=== PATIENT | female | born 1975 | race Caucasian/White ===

== ENCOUNTER 2020-02-23 09:42 | Inpatient (IN) | payer OTHER ==
[~2020-02-23] VITALS: Ht 167.6 cm; Wt 115.7 kg
--- NOTE | ~2020-02-23 | DS ---
[facility] [address], [place] [address] Draft ADMISSION DATE: 02/23/2020 DISCHARGE DATE: REASON FOR ADMISSION: Incarcerated strangulated incisional hernia, infraumbilical area. HISTORY: This morbidly obese 44-year-old white woman presented to the emergency room, was evaluated by Dr. Conley with severe pain and a large mass in the infraumbilical area consistent with incarcerated hernia. She had a long-standing hernia which in general terms had been reducible, but it has become recently nonreducible. She has had at least three days of very severe pain. Evaluation by Dr. Back includes a CT scan showing incarcerated incisional hernia with small bowel obstruction, markedly inflamed subcutaneous tissue in the large abdominal wall pannus and elevated white count to greater than 20,000 with 30% band forms. She is admitted for further evaluation and care. PERTINENT PHYSICAL EXAMINATION: GENERAL: Showed an obese white woman, but was not delirious, but was quite uncomfortable. HEENT: Mucous membranes are slightly dry. CHEST: Clear. HEART: Regular without murmur. ABDOMEN: Quite obese. There was a cantaloupe-sized nonreducible tender mass with erythema and peau d'orange changes of the skin in the infraumbilical area consistent with incarcerated probably strangulated incisional hernia. Her prior operation was that of laparoscopic tubal ligation. HOSPITAL COURSE: She was fluid resuscitated given intravenous antibiotic meropenem and a nasogastric tube was placed. She underwent emergency operation, which included identification of a fascial defect approximately 6 cm with a markedly chronically inflamed and incarcerated incisional hernia with multiple pockets within the hernia sac, which densely incorporated small bowel loops. Ischemic areas of bowel were noted within this. Segmental bowel resection of approximately 12-16 inches of ileum was undertaken as the bowel was nonsalvageable. A [id number] stapled enteroenterostomy was undertaken. The incisional hernia was repaired with implantation of absorbable Vicryl mesh in an underlay technique and reapproximation of the fascial edges. Additionally, debridement of abdominal wall necrotic fat in place and obtaining of cultures was undertaken. A drain was placed as well. PATIENT NAME: ESME HARDWICK DISCHARGE SUMMARY DATE OF : 73 REPORT #: [id number] PHYSICIAN: NUNU REED MD PCP: NO PRIMARY CARE PHYSICIAN REPORT IS CONFIDENTIAL AND NOT TO BE RELEASED WITHOUT AUTHORIZATION [facility] [address], [place] [address] Draft Postoperatively, the patient felt markedly improved immediately after operation. A nasogastric was allowed to remain in place for the next 12 hours and ultimately removed. She was advanced on a liquid diet and ultimately a solid diet, which she tolerated well. Full bowel function has returned. The drain was removed prior to discharge. Her cellulitic appearing change of the abdominal wall was resolving at time of discharge, though she remains quite markedly obese with firmness of her abdominal wall pannus, soft tissue in the region of the operation. Gram stain and culture showed only white cells, no organisms and cultures negative. By time of discharge, she is ambulating well, tolerating a regular diet. Drain has been removed. Incision is healing well. Her pain is well controlled with oral analgesics, not requiring opiates. DISCHARGE MEDICATIONS: Include Tylenol 1 g p.o. q.6 hours p.r.n. pain #60 refill 2, Motrin 600 mg p.o. q.6 hours as needed for pain #60 refill 2. FOLLOWUP PLANS: She is return to see me in approximately 4 weeks. She will call for appointment tomorrow. She is instructed to wear the abdominal binder that has been provided routinely except when supine in bed. She is permitted to shower, should leave Steri-Strips in place. She should lift no more than 20 pounds for the next 4 weeks at minimum. DISCHARGE DIAGNOSES: 1. Incarcerated incisional hernia with strangulation of small bowel (ileum) status post exploration, resection of bowel, mzje-ka-mzqm anastomosis, repair of hernia with implantation of absorbable Vicryl mesh underlay technique with reapproximation of fascial edges. 2. Debridement of ischemic necrotic subcutaneous fat. 3. Morbid obesity. MD BEN Lee/SHANAL /[id number] cc: Dr. Renato Back PATIENT NAME: ESME HARDWICK DISCHARGE SUMMARY DATE OF : 73 REPORT #: [id number] PHYSICIAN: NUNU REED MD PCP: NO PRIMARY CARE PHYSICIAN REPORT IS CONFIDENTIAL AND NOT TO BE RELEASED WITHOUT AUTHORIZATION [address] [address] Draft Copies: ~ PATIENT NAME: ESME HARDWICK DISCHARGE SUMMARY DATE OF : 73 REPORT #: [id number] PHYSICIAN: NUNU REED MD PCP: NO PRIMARY CARE PHYSICIAN REPORT IS CONFIDENTIAL AND NOT TO BE RELEASED WITHOUT AUTHORIZATION
[~2020-02-23 09:42] MED LIST: PRENATAL CAPSU1 EACH PO
--- NOTE | 2020-02-23 15:29 | NUR ---
PT ARRIVED AT 1400 TODAY. PT STATED ON ARRIVAL THAT HER PAIN WAS 2/10, BUT PT DID REPORT THAT SHE WAS FEELING NAUSEAOUS
--- NOTE | 2020-02-23 15:30 | NUR ---
PT STATED THAT HER PAIN LEVEL INCREASED RANDOMLY TO 6/10. PTOVIDED PT WITH 0.5MG OF DILAUDID FOR PAIN AND 4MG OF ZOFRAN FOR COMFORT PT IS PREPPED AND READY FOR SUREGERY AT THIS TIME
--- NOTE | 2020-02-23 17:34 | NUR ---
PTS FIANCE NAME AND NUMBER = SHEELA GENEVIEVE- [phone]
--- NOTE | 2020-02-23 19:05 | NUR ---
bedside report from leonor turcios. pt in surgery at this time, room cleaned with sani cloth and linen removed.
--- NOTE | 2020-02-23 19:41 | NUR ---
02/23/201940 Doc Arambula RESPONDS TO TAP AND VOICE AT 1933. OPA REMOVED PT IS REACHING UP TO MOUTH. REORIENTED PT TO TIME AND SITUATION. DENIES PAIN. DENIES NAUSEA.
--- NOTE | 2020-02-23 20:35 | NUR ---
pt to rm with Doc rn for bedside report. midline abd drsg cdi, with yudith and dressing including abd binder. pain rated at 0/10. call light in reach and pt alert and oriented to rn and room. iv d5 1/2 ns 2 125 in l ac. NGT TO LOW SUCTION AND ICE CHIPS SLOWLY FOR COMFORT. ABX AT 2200 TONIGHT AND PT CALLING FAMILY ON PHONE. CAI DRAINING CLEAR URINE.
--- NOTE | 2020-02-23 22:16 | NUR ---
PT MAR WITH ONLY IV ABX ON IT. DR. REED CALLED AND NEW ORDERS OBTAINED FOR PAIN AND NAUSEA IF NEEDED. PRIOR TO THAT PT PAIN 09/10 AND ICE PACK TO ABD GIVEN FOR COMFORT. IV ABX HANGING NOW.
--- NOTE | 2020-02-23 22:33 | NUR ---
pt iv abx fusing well, singh draining yellow urine qs. scds on, yudith with 40 ml dumped of serosang drainage - taught pt yudith instructions.
--- NOTE | 2020-02-24 00:06 | NUR ---
pt reports throat and abd pain 1/10 - medicated with iv toradol. vss, 02 2lnc. denies needs other than pain.
--- NOTE | 2020-02-24 01:43 | NUR ---
RN IN FOR ASSESSMENT, PT REPORTS THROAT TENDER - VOICE HOARSE, TOLLERABLE USING ICE CHIPS WITH CAUTION - NGT TO SUCTION. IV FUSING WELL, [employer] AND JOSE ANTONIO WONG. VSS
--- NOTE | 2020-02-24 01:53 | NUR ---
JOSE ANTONIO DRAINED AND I/O DONE. JOSE ANTONIO HAD 20 ML OF SEROSANG DRAINAGE.
--- NOTE | 2020-02-24 04:36 | NUR ---
checked orders with bellows charger assembler, pt resp rate even, appears comfortable - no distress.
--- NOTE | 2020-02-24 04:50 | NUR ---
PT POST OP SM BOWEL RESECTION, HERNIA REPAIR WITH MESH. NGT, MARIA TERESA DRAIN INTACT WNL. AB BINDER ON WITH MIDLINE DRESG CDI - TORADOL PRN IV AND iV ABX ONLY MEDS GIVEN THIS SHIFT. CONFIRM IV FLUIDS WITH DR. COLUNGA AM. PT USING IS WELL, CAI DRAINING QS, AND PLEASANT PT.
--- NOTE | 2020-02-24 06:00 | NUR ---
iv abx hanging. pt on phone, denies needs, abd crystal and yudith wnl - i/o wnl and documented.
--- NOTE | 2020-02-24 06:55 | NUR ---
WASTE DISPOSAL ATTENDANT ASKED ABOUT FURTHER ORDERS FOR IV FLUIDS, AM LABS AND HEPARIN, -CHARGE CALLED AND RECEIVED ORDERS - SHE WILL ENTER.
--- NOTE | 2020-02-24 06:58 | NUR ---
PHONE CALL TO . VERIFIED IVF, MEDICATION, AND LAB ORDERS. NEW ORDERS RECEIVED, REPEATED BACK TO VERIFY.
--- NOTE | 2020-02-24 07:36 | NUR ---
0715: Pt resting in her bed with ngt to low suction, yudith drain working, scds on and running. She states her pain is well controled at 2/10. Call quintanilla within reach. Report received from Lorrie MAHONEY.
--- NOTE | 2020-02-24 09:12 | NUR ---
DR REED TO THE BEDSIDE SPEAKING WITH THE PT.
--- NOTE | 2020-02-24 09:21 | NUR ---
MED REC COMPLETE
--- NOTE | 2020-02-24 09:31 | NUR ---
DR REED WILL BE NOTIFIED OF HER URINE OUTPUT.
--- NOTE | 2020-02-24 09:36 | NUR ---
PT RESTING IN BED, NGT REMOVED ORDERED BY DR REED AND THE PT TOLERATED IT WELL. HER MIDLINE DRESSING REMAINS CDI WITH ABD BINDER IN PLACE. RIGHT SIDED JOSE ANTONIO DRAIN PUTTING OUT A SMALL AMOUNT OF SEROUS DRAINAGE AND THE DRESSING HAS A MODERATE AMOUNT OF DRAINAGE ON IT BUT IT REMAINS INTACT. CAI PUT OUT 100 ML OF JULIO URNINE, A MESSAGE WAS LEFT FOR DR REED IN THIS REGARD. PT DENIES ANY PAIN AT THIS TIME. SEE ASSESSMENT.
--- NOTE | 2020-02-24 10:13 | NUR ---
Pt ambulated about 1/3 of a lap in the halls with a SBA. She was steady on her feet and states that it feels good to be up and walking. Upon returning to her room she sat in the chair and is now visiting with her friend. She states that her pain really did not change with the walking and continues to rate it at a 4 which it was also prior to the walk. Call quintanilla within reach.
--- NOTE | 2020-02-24 10:30 | NUR ---
CM assessment completed with Mercedes. Son, Rickey, is in the room. 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 She is usually healthy and active. She lives in a 1 story home with 0 steps. Son lives with her. She does not have any insurance and I will call Kell to assist her. She does not have a PCP and would like assistance to establish care with a provider in [place]. She does not care who or if the are PA, CO[facility], or MD. I will call [facility] as I believe they are still taking pts. Kell arrives before I have a chance to call to assist pt with the [facility]. I called [facility], they are busy and will call be this afternoon with appts if I will fax a face sheet. Face sheet faxed.
--- NOTE | 2020-02-24 11:05 | NUR ---
Mckinley cath dc'd as ordered, pt tolerated well. Pt instructed to notify RN when she voids so it can be measured.
--- NOTE | 2020-02-24 12:17 | NUR ---
Pt slowly eating her clear liquid lunch and she continues to deny any nausea of increase in pain with her eating. Pt has yet to void since the singh was dc'd, will continue to monitor.
--- NOTE | 2020-02-24 12:36 | NUR ---
Pt ate/drank about 600 ml of clear liquid for her lunch and she states she is "full" but denies nausea or increased pain after eating.
--- NOTE | 2020-02-24 13:48 | NUR ---
PT DENIES ANY NEW PROBLMES AND TOLERATED HER LUNCH WITHOUT ANY ISSUES. PT HAS YET TO VOID SINCE HER CAI WAS DC'D BUT STATES SHE WILL ATTEMPT TO VOID HEAR SHORTLY. NO NEW PROBLEMS NOTED. SEE ASSESSMENT.
--- NOTE | 2020-02-24 14:44 | NUR ---
PT AMBULATING IN THE HALLS WITH A SBA FOR THE SECOND TIME THIS SHIFT.
--- NOTE | 2020-02-24 14:45 | NUR ---
PT WALKED A LAP IN THE HALLS AND UPON RETURN SHE STATES SHE FEELS "PRETTY GOOD".
--- NOTE | 2020-02-24 17:23 | NUR ---
PT STATES HER ABD HAS INCREASED TO A 4/10 AND WAS MEDICATED ORDERED AND REQEUSTED BY THE PT. SEE EMAR. JOSE ANTONIO DRAIN EMPTIED FOR 80ML AT THIS TIME. PT CONTINUES TAKING PO CLEAR LIQUIDS WITHOUT ANY TROUBLE AND IS NOW HAVING HER CLEAR LIQUID DINNER.
--- NOTE | 2020-02-24 17:28 | NUR ---
appt to establish care scheduled with Jaimie Orona 10/03/19 at 2pm. Pt will need to arrive at 1340.
--- NOTE | 2020-02-24 17:46 | HP ---
[facility] [address], [place] [address] Signed ADMISSION DATE: 02/23/2020 REASON FOR ADMISSION: Incarcerated, possibly strangulated incisional hernia. HISTORY OF PRESENT ILLNESS: This morbidly obese (BMI 40.4) 44-year-old white woman, presented to the emergency room at approximately 10:00 am, was evaluated by Dr. Bojorquez. She has a very large mass in the region of the umbilicus. She has incision there from the past related to gynecologic surgery. The patient has had hernia episodically in this area, which has been reducible in the past. She began having vomiting on Friday night (today is Friday) and increasing pain and soon of the large bulky incisional hernia at the umbilicus. Evaluation by Dr. Bojorquez showed it to be markedly tender and not reducible. Evaluation in the emergency room included a CT scan of the abdomen, which shows bowel loops within the incarcerated hernia and subcutaneous inflammatory changes as well. She has had associated vomiting and likely a small bowel obstruction is noted with this as well. Her prior operation of the abdomen was tubal ligation (2013). ALLERGIES: Notable for penicillin allergy in the distant past. MEDICATIONS: Her only medications include a vitamin. Notably, her beta-hCG test is negative. SOCIAL HISTORY: She does smoke on a daily basis. Does not use alcohol or drugs. Her last menstrual period was February 17, 2020. Her evaluation included a white count noted to be elevated at 20, hematocrit of 32.5. Electrolytes normal. A COVID test has been obtained with results are not completed yet. REVIEW OF SYSTEMS: She denies any shortness of breath or chest pain. Denies any hematemesis or blood per rectum. PHYSICAL EXAMINATION: GENERAL: Obese, relatively tall white woman, who is lying supine. She is not Electronically Signed By: NUNU REED MD 02/24/20 1746 PATIENT NAME: ESME HARDWICK HISTORY AND PHYSICAL DATE OF : 73 REPORT #: [id number] PHYSICIAN: NUNU REED MD PCP: NO PRIMARY CARE PHYSICIAN REPORT IS CONFIDENTIAL AND NOT TO BE RELEASED WITHOUT AUTHORIZATION [facility] [address], [place] [address] Signed delirious. She is accompanied by her gzohhy-pl-iia and other of my patients. HEENT: Her mucous membranes are slightly dry. Trachea is midline. CHEST: Shows no sign of tachypnea. HEART: Regular. ABDOMEN: Obese. There is a very large mass approximately the size of a cantaloupe in the region of the umbilicus. It is tender and nonreducible as an incarcerated hernia. EXTREMITIES: Show no clubbing, cyanosis, or edema. LABORATORY STUDIES: As previously noted including a white count of 20.8, hematocrit of 32.5, and platelets 394,000. Electrolytes normal. Bicarb 25, bilirubin 2.0. Beta-hCG negative. Urinalysis pending. A Mckinley catheter is being placed currently. COVID19 swab pending[address] CT scan was reviewed in detail and reports reviewed as well, consistent with findings as described. ASSESSMENT: The patient has an incarcerated, likely strangulated incisional hernia at the region of the umbilicus. Additional fluid resuscitation, IV antibiotic administration, and so forth is ongoing, anticipating emergency evaluation and repair. She may require resectional therapy if the ischemic bowel is noted. She has had over 3 days of persistent problem and that is a likelihood in some ways. We discussed this as well. The risks of bleeding, infection, recurrent hernia, and other unforeseen complications were reviewed in detail. She understands and agrees to proceed as we have described. MD BEN Lee/SHANAL /[id number] cc: Renato Bojorquez MD Copies: RENATO BOJORQUEZ MD ~ Electronically Signed By: NUNU REED MD 02/24/20 1746 PATIENT NAME: ESME HARDWICK HISTORY AND PHYSICAL DATE OF : 73 REPORT #: [id number] PHYSICIAN: NUNU REED MD PCP: NO PRIMARY CARE PHYSICIAN REPORT IS CONFIDENTIAL AND NOT TO BE RELEASED WITHOUT AUTHORIZATION
--- NOTE | 2020-02-24 17:46 | OR ---
[facility] [address], [place] [address] Signed DATE OF OPERATION: 02/23/2020 SURGEON: Nunu Reed MD PREOPERATIVE DIAGNOSES: 1. Incarcerated probably strangulated incisional hernia. 2. Morbid obesity. 3. Distant history of tubal ligation. POSTOPERATIVE DIAGNOSES: 1. Ischemic bowel (distal ileum) multifocal related to chronic clearly incarcerated and acutely strangulated incisional hernia. 2. Ischemic necrosis of abdominal wall pannus. 3. Morbid obesity. PROCEDURES PERFORMED: 1. Reduction of complex large incisional hernia. 2. Small bowel resection with [id number] enteroenterostomy (ileum). 3. Repair of incisional hernia with implantation of Vicryl mesh (underlay technique) and medialization of linea alba. PROLONGED COMPLICATED AND DIFFICULT. 4. Debridement of abdominal wall necrotic fat, cultures, and placement of drain. ANESTHESIA: General endotracheal; Nunu Sam CRNA and local 10 mL of 0.25% Marcaine with epinephrine. DRAINS: A 7 mm Garry. INDICATIONS: This morbidly obese 44-year-old white woman, presented to the emergency room today with severe abdominal pain and swelling in the region below the umbilicus. The patient is known to have an incisional hernia from the past related to tubal ligation. On Friday, she began having more severe pain (today is Friday) and the previously reducible hernia has become extremely large, very painful, tender and associated with nausea and vomiting. Evaluation in the emergency room by Dr. Bojorquez including CT scan showed incarcerated incisional hernia with small bowel obstruction, markedly inflammatory subcutaneous tissue related to abdominal wall pannus, and an elevated white count to greater than 20,000 with elevated band forms. Electronically Signed By: NUNU REED MD 02/24/20 1746 PATIENT NAME: ESME HARDWICK OPERATIVE REPORT DATE OF : 73 REPORT #: [id number] PHYSICIAN: NUNU REED MD PCP: NO PRIMARY CARE PHYSICIAN REPORT IS CONFIDENTIAL AND NOT TO BE RELEASED WITHOUT AUTHORIZATION [facility] [address], [place] [address] Signed She has been fluid resuscitated. A nasogastric tube was then placed. Mckinley catheter placed and she is now to undergo emergency operation for reduction of the hernia and other indicated procedures. The risks of bleeding, infection, need for bowel resection, need for complex abdominal wall reconstruction, and possible need for delayed repair of all been reviewed with her in detail. She understands and wished to proceed. FINDINGS: A markedly inflamed dense and tough herniated area corresponding likely to prior trocar site was noted. The defect was 4 fingerbreadths in size and not far from the region of the umbilicus related to prior laparoscopy incision. A very thick hernia sac was noted. Bowel within the hernia sac had proximal dilation and distal decompression and ultimately corresponded to the ileum. There were several segments of ischemic necrosis. No sign of actual perforation, however. A segment of bowel was resected approximately 1 foot or so in length and a [id number] enteroenterostomy undertaken with good patency noted. Repair of the hernia itself was undertaken with resection of the hernia sac, which had multiple defects in it, some of them chronic with chronically incarcerated segments of small bowel. The properitoneal space was developed and implantation of absorbable Vicryl mesh undertaken in the properitoneal space due to resection of bowel and intention to avoid contamination of a permanent mesh (Prolene), which is otherwise available. Reapproximation of fascial edges was undertaken transversely rather than vertically over the repair. Additionally noted was necrotic fat of the abdominal wall particular on the left inferior aspect. This may have been infected and cultures were obtained. There was no germaine pus, but certainly necrotic fat and I suspect related primarily to ischemic necrosis from the herniated viscus itself in relation to the abdominal wall and skin. DESCRIPTION OF PROCEDURE: The patient was brought to the operating room, given a general endotracheal anesthetic. Preoperative antibiotic meropenem had been given previously. Sequential compression device stockings were used and heparin subcutaneously administered. After satisfactory general endotracheal anesthesia, the abdomen was clipped and prepared with a chlorhexidine solution and draped sterilely. Notably, a nasogastric tube was already in place as was a Mckinley catheter. A very dense mass in the mid abdomen inferior to the umbilicus was palpated and completely nonreducible, very hard and firm, and peau d'orange changes of the skin itself noted. Photographs were taken. An incision was made directly over the mass trying to limit its size, but later extended. Dissection of the inflammatory hernia sac was undertaken showing considerable edema and inflammation of the subcutaneous fatty layer. Considerable dissection was required. Marked edema was noted. Dissection was Electronically Signed By: NUNU REED MD 02/24/20 1109 PATIENT NAME: ESME HARDWICK OPERATIVE REPORT DATE OF : 73 REPORT #: [id number] PHYSICIAN: NUNU REED MD PCP: NO PRIMARY CARE PHYSICIAN REPORT IS CONFIDENTIAL AND NOT TO BE RELEASED WITHOUT AUTHORIZATION [address] [address] Signed carried down to the fascial edges itself. Ultimately, it became clear that distinguishing the fascial edge from the hernia sac would not be likely. With meticulous care, the layers of the hernia sac were incised revealing underlying small bowel, which appeared ischemic. It was not frankly necrotic (black) it definitely ischemic and of uncertain viability initially. The hernia sac was then freed from the underlying herniated viscus. The hernia sac itself had multiple defects within it corresponding to chronically incarcerated bowel within hernia sac and the dominant fascial defect itself separate and distinct. The small bowel loops were freed from the incarcerated areas of hernia sac, ultimately allowing for delivery of the bowel. Proximal dilation and distal decompression were noted. Segments of viable bowel were marked with silk suture. A segment at least 12 inches in length, possibly a bit more was noted and non-recoverable. This area was deemed appropriate for resection. The mesentery corresponding to the ischemic segment was incised with electrocautery and sequential application of hemostats undertaken. The vascular pedicle secured with 2-0 silk ties. A 75 mm SUSHMA stapling device was used to transect the bowel proximally and distally and the viable segments. The specimen was photographed separately. Although, I generally would favor an end-to-end anastomosis, the disparate size of the distal decompressed segment compared to the proximal dilated side suggested a more appropriate anastomosis be a [id number]-br-[id number] enteroenterostomy. The distal portion was examined and found to have approximately 8 inches away, the antimesenteric fat pad of tree indicating the resected segment was that of the ileum. Using the SUSHMA stapling device, a eekt-eg-zubi enteroenterostomy was undertaken without problem. The staple line was examined and found to be viable and without sign of leakage or bleeding. The anvil sites that were used for passage of the stapling device were reapproximated with interrupted 3-0 silk suture. The mesenteric defect was similarly reapproximated. The bowel was then replaced into the abdominal cavity. Somewhat sanguinous ascites fluid was suctioned free. There was no sign of other bowel loop abnormality. The fascial defect was about 4 fingerbreadths in size corresponding to about 6-8 cm. The hernia sac was dense and chronically inflamed. The hernia sac was excised and passed for permanent pathology. The cut ends of the hernia sac were used to better define the fascial edges itself. The fascial edges were freed from the underlying properitoneal space circumferentially with electrocautery. The remnant of hernia sac was reapproximated with running 2-0 Vicryl suture. The properitoneal space was now isolated from the intraabdominal cavity, and the previous anastomosis was inspected and given the transection of the bowel and obvious contamination, possible infected nature of the wound itself, implantation of permanent mesh was deemed inadvisable. A double layer of Vicryl mesh was cut to oblong configuration and secured in the properitoneal space with interrupted 0 Prolene sutures with Vicryl pledgets. Photographs were taken. Electronically Signed By: NUNU REED MD 02/24/20 1746 PATIENT NAME: ESME HARDWICK OPERATIVE REPORT DATE OF : 73 REPORT #: [id number] PHYSICIAN: NUNU REED MD PCP: NO PRIMARY CARE PHYSICIAN REPORT IS CONFIDENTIAL AND NOT TO BE RELEASED WITHOUT AUTHORIZATION [address] [address] Signed Midline medialization of the linea alba was intended, however, attention was rather significant. On the right side, dissection was undertaken for consideration of a components release. However, under the circumstances, only a small relaxing incision was made. Still the reapproximation of the linea alba vertically was under too much tension. Mindful of probable need for hernia repair in the future (however, without enteric contamination possibility) in components separation technique was left for reserve in the future as necessary. The fascia, however, was able to be reapproximated transversely. This was accomplished with interrupted 0 Prolene suture in a vertical mattress configuration. A 10 mL of 0.25% Marcaine was injected locally in the fascial edges. Inspection of the subcutaneous tissue was undertaken showing a dense ricky like changes of the subcutaneous fat and appearance of ischemic necrosis and possible infection. Electrocautery was used to incise this area, which drained a suspicious looking fluid, not frankly purulent, but definitely suspect for ischemic necrosis. It is my impression that the dense herniation had provided enough ischemic change of the fat that had become ischemic itself. This fatty tissue once in size was cultured and widely excised circumferentially including the right and left side and inferiorly. Dissection and resection were undertaken back to viable tissue. Through a right lower quadrant stab incision, a 7 mm flat Garry drain was placed in the depths of the wound. Irrigation was undertaken and hemostasis assured with electrocautery. The drain was secured to the skin with nylon suture. Nisha layer was reapproximated with interrupted 2-0 Vicryl. The skin closed with a running subcuticular 3-0 Vicryl. Steri-Strips were applied as was a silver sponge dressing. An abdominal binder was ultimately applied in recovery room. The patient was ultimately extubated without excessive straining or coughing, which was certainly much appreciated. She was taken to recovery room in good condition. Blood loss was less than 25 mL in aggregate. Sponge, needle, and instrument counts reported as correct x3. The operation was rather prolonged, complicated, and difficult lasting greater than 3-1/2 hours. MD BEN Lee/PAULINA /[id number] cc: Renato Bojorquez MD Electronically Signed By: NUNU REED MD 02/24/20 1746 PATIENT NAME: ESME HARDWICK OPERATIVE REPORT DATE OF : 73 REPORT #: [id number] PHYSICIAN: NUNU REED MD PCP: NO PRIMARY CARE PHYSICIAN REPORT IS CONFIDENTIAL AND NOT TO BE RELEASED WITHOUT AUTHORIZATION [address] [address] Signed Copies: RENATO BOJORQUEZ MD ~ Electronically Signed By: NUNU REED MD 02/24/20 1746 PATIENT NAME: ESME HARDWICK OPERATIVE REPORT DATE OF : 73 REPORT #: [id number] PHYSICIAN: NUNU REED MD PCP: NO PRIMARY CARE PHYSICIAN REPORT IS CONFIDENTIAL AND NOT TO BE RELEASED WITHOUT AUTHORIZATION
--- NOTE | 2020-02-24 18:13 | NUR ---
PT AMBULATED IN THE HALLS 2 TIMES THIS SHIFT. SHE WAS STEADY ON HER FEET AND TOLERATED THE WALKING WELL. SHE HAS HAD GOOD PAIN CONTROL WITH THE USE OF TORADOL AND TYLENOL. SHE HAS TOLERATED HER CLEAR LIQUID DIET WITHOUT ANY PROBLEMS AND TOLERATED THE DC OF HER CAI AND NG TUBE. INCISION SITE CDI AND ABD BINDER REMAINS IN PLACE. MARIA TERESA DRAIN PUT OUT 115 ML THIS SHIFT.
--- NOTE | 2020-02-24 18:22 | NUR ---
PT AMBULATED IN THE DALEY FOR THE THIRD TIME THIS SHIFT AND UPON RETURN TO HER ROOM SHE USED THE BR AND HAD A SMALL SOFT STOOL WITH NO BLOOD NOTED. PT DENIES ANY NEW PROBLEMS.
--- NOTE | 2020-02-24 19:27 | NUR ---
PATIENT RESTING IN BED, NO PAIN, CALL LIGHT IN REACH, WATCHING TV WITH FAMILY.
--- NOTE | 2020-02-24 20:01 | NUR ---
pt used call light to ask to use the restroom. VS and I&Os complete.
--- NOTE | 2020-02-24 21:20 | NUR ---
PT'S IV WAS BEEPING, UPON ENTERING THE ROOM PT STATES HER IV WAS LEAKING. REPOSITIONED HER HAND AND CHECKED TO MAKE SURE HUB WAS ON TIGHT AND STARTED IV FLUIDS BACK UP AGAIN. SHE WOULD LIKE HER PRIMARY RN TO BRING PAIN MEDS ALONG WITH OTHER MEDS AND DENIES FURTHER NEEDS. CALL LIGHT IS CLOSE.
--- NOTE | 2020-02-24 21:50 | NUR ---
PATIENT HAVING 6/10 ABD PAIN AND 4MG IV MS GIVEN AFTER PREMEDICATION WITH 4MG IV ZOFRAN TO PREVENT NAUSEA. PATIENT STARTING TO FEEL BETTER. SCD'S HOOKED UP AND PATIENT READY FOR BED. CALL LIGHT IN REACH.
--- NOTE | 2020-02-24 23:29 | NUR ---
PATIENT COMFORTABLE AT THIS TIME AND HAS NO NEEDS, CALL LIGHT IN REACH AND PATIENT WATCHING TV.
--- NOTE | 2020-02-25 00:33 | NUR ---
HELPED PT TO THE BATHROOM. SHE WILL USE THE CALL SWITCH WHEN SHE IS READY TO GO BACK TO BED.
--- NOTE | 2020-02-25 00:53 | NUR ---
HELPED PT BACK TO BED FROM THE BATHROOM. SCD'S PUT BACK ON. JOSE ANTONIO EMPTIED. BEDSIDE TABLE AND CALL LIGHT IN REACH. PT NEEDS NOTHING MORE AT THIS TIME.
--- NOTE | 2020-02-25 02:03 | NUR ---
vitals and i&os done and charted. bedside table and call light in reach.
--- NOTE | 2020-02-25 02:35 | NUR ---
PATIENT UP TO THE BATHROOM AND BACK TO BED, HAS BEEN SLEEPING. HAVING 3/10 ABD PAIN AND REQUESTED MOTRIN 600MG, GIVEN. PATIENT HAS NO OTHER NEEDS AND GOING BACK TO SLEEP. CALL LIGHT IN REACH.
--- NOTE | 2020-02-25 04:30 | NUR ---
PATIENT HAS RESTED WELL TONIGHT, SHE WAS A LITTLE PAINFUL AFTER GETTING UP TO THE RESTROOM EARLY ON AND GOT 4MG OF MS IV AND 4 MG ZOFRAN IV TO PREVENT NAUSEA PAIN WAS 6/10 AT THAT TIME AND LATER HAD 600MG OF MOTRIN FOR 3/10 PAIN AND WENT BACK TO SLEEP. IV'S HAVE BEEN WNL, PATIENT HAS BEEN VOIDING WELL. SCD'S IN PLACE, ABD BINDER IN PLACE, JOSE ANTONIO DRAIN HAS NO PUT OUT A LOT OF DRAINAGE AND MIDDLINE DRESSING IS CDI. PATIENT CURRENTLY RESTING QUIETLY WITH CALL LIGHT IN REACH.
--- NOTE | 2020-02-25 06:16 | NUR ---
VITALS AND I&OS DONE AND CHARTED. EMPTIED GARBAGES. FRESH ICE WATER GIVEN. BEDSIDE TABLE AND CALL LIGHT IN REACH. PT NEEDS NOTHING MORE AT THIS TIME.
--- NOTE | 2020-02-25 06:40 | NUR ---
HELPED PT BACK TO BED FROM THE BATHROOM. BEDSIDE TABLE AND CALL LIGHT IN REACH.
--- NOTE | 2020-02-25 07:29 | NUR ---
0700: Report received from Dennis MAHONEY. Pt resting in her bed and states she has some abd pain at a 5/10 and she was medicated for pain at this time. She denies any other new problems, call quintanilla within reach.
--- NOTE | 2020-02-25 07:46 | NUR ---
PT STATES SHE IS TIRED SHE WAS AWAKE SEVERAL TIMES IN THE NIGHT AND SHE WISHES TO TAKE A NAP AT THIS TIME. SHE STATES SHE WILL GO FOR A WALK AFTER A NAP. INCISION SITE DRESSING REMAINS CDI WITH ABD BINDER IN PLACE. JOSE ANTONIO IN PLACE AND FUNCTIONING WITHOUT DIFFICULTY. PT DENIES ANY OTHER NEW PROBLEMS. SEE ASSESSMENT.
--- NOTE | 2020-02-25 08:34 | NUR ---
PATIENT AMBULATING DALEY WITH PATY [place]. LINENS CHANGED, PATINE BACK AN SITTING UP IN CHAIR. CALL LIGHT IN REACH NO OTHER NEEDS AT THIS TIME.
--- NOTE | 2020-02-25 09:00 | NUR ---
PT SITTING UP IN HER CHAIR EATING HER CLEAR LIQUID BREAKFAST. SHE DENIES ANY NAUSEA AND SHE STATES HER PAIN IS "PRETTY GOOD". PT HAS BEEN UP AND AMBULATED 1 1/4 LAPS IN THE HALLS WITH THE TONGUE TRIMMER WHICH SHE TOLERATED WELL.
--- NOTE | 2020-02-25 10:27 | NUR ---
PATIENT AWAKE IN BED, VITALS AND I&OS DONE AND CHARTED. PATIENT WOULD LIKE TO TAKE ANOTHER WALK, STATES HER "MUSCLES TEND TO TIGHTEN UP' WHEN SHE LAYS AROUND FOR TOO LONG.
--- NOTE | 2020-02-25 10:30 | NUR ---
Spoke with Mercedes. She is doing well, hungry. Denies needs.
--- NOTE | 2020-02-25 11:15 | NUR ---
Pt resting in her bed with no new complaints.
--- NOTE | 2020-02-25 12:32 | NUR ---
Pt eating her lunch at this time. She continues to deny any nausea and she states her pain is well controled. Mercedes has been up ambulating in the halls twice so far this shift and has been moving well and has been steady on her feet.
--- NOTE | 2020-02-25 14:04 | NUR ---
PT RESTING IN HER BED AND STATES HER PAIN IS A 4/10, SEE EMAR. PT DENIES ANY OTHER PROBLEMS OTHER THAN FEELING "TIRED" AND STATES SHE IS THINKING ABOUT A NAP AND WILL WALK A BIT LATER.
--- NOTE | 2020-02-25 14:22 | NUR ---
PATIENT AWAKE IN BED. VITALS DONE AND CHARTED. I&OS CHARTED BY DENZEL WHITE. CALL LIGHT IN REACH. NO OTHER NEEDS AT THIS TIME
--- NOTE | 2020-02-25 14:33 | NUR ---
SCD'S ON AND RUNNING. PT DENIES ANY NEEDS OR NEW PROBLEMS AT THIS TIME.
--- NOTE | 2020-02-25 15:16 | NUR ---
DR REED TO THE BEDSIDE ASSESSING AND SPEAKING WITH THE PT AND HER SPOUSE.
--- NOTE | 2020-02-25 15:26 | NUR ---
IV fluid dc'd as ordered.
--- NOTE | 2020-02-25 16:40 | NUR ---
Pt has had good pain control with the use of tylenol and motrin this shift. She has been up and ambulated in the halls 3 times so far today. Her abd incisional dressing remains cdi. Right abd Pasquale drain functioning well and draining serous fluid, this dressing has a small amount of old drainage noted and remains intact. ABD remains in place. Her diet has been advanced to regular which she is pleased with and she has just ordered dinner. She tolerated her clear liquid breakfast and lunch well.
--- NOTE | 2020-02-25 17:23 | NUR ---
Pt eating her meal at this time and continues deny any nausea.
--- NOTE | 2020-02-25 18:33 | NUR ---
PATIENT AWAKE IN BED, FINISHED WITH DINNER. VITALS AND I&OS DONE AND CHARTED. CALL LITH WITHIN REACH. NO OTHER NEEDS AT THIS TIME
--- NOTE | 2020-02-25 19:46 | NUR ---
SHIFT REPORT RECEIVED FROM CINDY MAHONEY. PT RESTING IN BED, WATCHING TV. PAIN 12/09, PT DENIES NEED FOR INTERVENTION YET. NO NEEDS AT THIS TIME. CALL LIGHT IN REACH.
--- NOTE | 2020-02-25 20:12 | NUR ---
ASSESSMENT, VS AND I&O COMPLETED. ABD FIRM AT LOWER MIDLINE AND LOWER LEFT SIDE. DRESSINGS CDI, WNL. MARIA TERESA DRAIN WNL. ABD BAND ON. PAIN 5/10, PRN PAIN MED PROVIDED. SCHEDULED MEDS PROVIDED. CMS INTACT. BOWEL TONES ACTIVE. LUNGS CLEAR. IV CDI, WNL, FLUSHED WELL. NO OTHER NEEDS AT THIS TIME. CALL LIGHT IN REACH.
--- NOTE | 2020-02-25 22:16 | NUR ---
PT RESTING IN BED, VISITING WITH FAMILY MEMBER. CALL LIGHT IN REACH.
--- NOTE | 2020-02-25 23:38 | NUR ---
WASHED PT'S HAIR IN THE BATHROOM CHAIR. SHE SHAVED HER ARMPITS WITH SHAVE CREAM AND WIPED THEM OFF WITH A WET WASHCLOTH. WIPED UP THE WET FLOOR AND EMPTIED GARBAGES. NEW GOWN PUT ON. NEW CHUCKS ON HER BED. PT NEEDED TO USE THE TOILET. SHE WILL CALL IF SHE NEEDS ANYTHING. SHE SAYS SHE FEELS A LOT BETTER.
--- NOTE | 2020-02-26 00:16 | NUR ---
PT AWAKE IN ROOM, PAIN 2. NO NEEDS AT THIS TIME. CALL LIGHT IN REACH.
--- NOTE | 2020-02-26 02:05 | NUR ---
PT RESTING IN BED, EYES CLOSED. RR EVEN, UNLABORED. CALL LIGHT IN REACH.
--- NOTE | 2020-02-26 04:39 | NUR ---
PT AWAKE IN ROOM. ASSESSMENT COMPLETED. PT SPEAKS OF CONCERNS ABOUT GOING HOME TOO SOON. THERAPUTIC COMMUNICATION PROVIDED. LOWER MIDLINE AND LOWER LEFT ABD FIRM AND TENDER. BOWEL TONES ACTIVE. MARIA TERESA DRAIN HAD 20ML SS DRAINAGE. MARIA TERESA DRESSING HAS DRIED SS DRAINAGE, MIDLINE DRESSING CDI. IV CDI, WNL. LUNGS CLEAR. ICE WATER PROVIDED. ABD PAIN 5/10, PRN PAIN MED PROVIDED. NO OTHER NEEDS AT THIS TIME. CALL LIGHT IN REACH.
--- NOTE | 2020-02-26 05:48 | NUR ---
PT SLEPT ABOUT HALF THE SHIFT. PAIN MANAGED WITH MOTRIN. INCISIONS COVERED, MARIA TERESA DRAIN HAD SMALL AMOUNT OF SS DRAINAGE ON DRESSING. MIDLINE CDI. MID LOWER ABD AND LEFT LOWER ABD FIRM AND TENDER. BOWEL TONES ACTIVE. PT TOLERATED REGULAR DIET WELL. PT WALKED HALLS ONCE TONIGHT. MARIA TERESA DRAIN HAD 25ML SS OUTPUT. IV WNL, CDI, FLUSHED WELL. PT SPEAKS OF CONCERNS ABOUT GOING HOME TOO SOON, PAIN MANAGEMENT AND FALLING AT HOME. UOS, ONE BM THIS SHIFT. VSS. PT TOLERATED ABD BINDER WELL. PT WASHED HER HAIR AND SHAVED UNDERARMS WITH PSYCHOLOGIST CHIEF, SHE WOULD LIKE TO JOSE A SHOWER SOON. NO NAUSEA REPORTED.
--- NOTE | 2020-02-26 06:02 | NUR ---
VITALS AND I&OS DONE AND CHARTED. EMPTIED GARBAGES. FRESH ICE WATER GIVEN. PUT A NEW ROLL OF TOILET PAPER IN HER BATHROOM. CLEANED UP THE ROOM AND BATHROOM WELL. BEDSIDE TABLE AND CALL LIGHT IN REACH. PT NEEDS NOTHING MORE AT THIS TIME.
--- NOTE | 2020-02-26 07:56 | NUR ---
Pt awake, a&ox4. Pt on ra, resp even and non labored. Abdominal dressings are covered; CDI. Abdominal binder in place. JOSE ANTONIO to rlq; patent, sarosang drainage noted. Pt's lower mid abd is a bit more firm as compared to lateral locatons. Pt reports pain is tolerable at this time. No needs. Call light within reach.
--- NOTE | 2020-02-26 10:23 | NUR ---
PATIENT AWAKE IN BED. VITALS AND I&OS DONE AND CHARTED. PATIENT REPORTS FEELING A DAMPNESS ON LEFT LOWER SIDE OF ABDOMEN. THIS FLIGHT OPERATIONS COORDINATOR NOTICED A SMALL "DRIP" BELOW HER ABDOMINAL BINDER ON THE SKIN. GOWN HAS A SMALL STAIN IN THAT AREA WELL. NO REDNESS. DENZEL STEWARD NOTIFIED. PATIENTS FAMILY AT BEDSIDE. CALL LIGHT IN REACH.
--- NOTE | 2020-02-26 14:13 | NUR ---
Admin ibupfen 600mg po for reports of 5/10 abdominal pain.
--- NOTE | 2020-02-26 15:29 | NUR ---
PATIENT AWAKE IN BED. HOPING SHE CAN SHOWER TODAY, THIS GLASS PRODUCTION MACHINE OPERATOR WILL TALK TO DENZEL STEWARD ABOUT THAT. VITALS AND I&OS ARE DONE AND CHARTED. CALL LITH SI WITHIN REACH
--- NOTE | 2020-02-26 17:33 | NUR ---
PATIENT SITTING ON SIDE OF BED, DAUGHTER AT BEDSIDE. VITALS AND I&OS CHARTED. CALL LIGHT IN REACH. NOT ENOUGH IN JOSE ANTONIO TO EMPTY.
--- NOTE | 2020-02-26 18:17 | NUR ---
A&O X4. ON RA. Tolerating diet well. SL. Garry drain small amount of sarosang drainage. Urine output q/s. Abdominal binder intact. Dressing CDI. Calls appropriately.
--- NOTE | 2020-02-26 19:05 | NUR ---
SHIFT REPORT RECEIVED FROM NICHELLE MAHONEY. PT VISITING WITH FAMILY IN ROOM. CALL LIGHT IN REACH.
--- NOTE | 2020-02-26 20:45 | NUR ---
ASSESSMENT COMPLETED. ABD FIRM AND TENDER. INCISIONS COVERED, CDI, WNL. MARIA TERESA DRAIN WNL, SS OUTPUT. IV WNL, CDI, FLUSHED WELL. CMS INTACT. SCHEDULED MEDS PROVIDED. ABD PAIN 12/09, PRN MOTRIN PROVIDED. NO OTHER NEEDS AT THIS TIME. CALL LIGHT IN REACH.
--- NOTE | 2020-02-26 23:57 | NUR ---
PT RESTING IN BED, WATCHING TV. NO NEEDS AT THIS TIME. CALL LIGHT IN REACH.
--- NOTE | 2020-02-27 02:04 | NUR ---
PT RESTING IN BED, EYES CLOSED. RR EVEN, UNLABORED. IV FLUIDS INFUSING PER ORDER. HR SR @ 75. CALL LIGHT IN REACH.
--- NOTE | 2020-02-27 02:06 | NUR ---
PT RESTING IN BED, EYES CLOSED. RR EVEN, UNLABORED. CALL LIGHT IN REACH.
--- NOTE | 2020-02-27 02:40 | NUR ---
PT CALLS TO ASK FOR PAIN MED, MOTRIN PROVIDED. ASSESSMENT COMPLETED, DRESSINGS CDI, WNL. MARIA TERESA DRAIN WNL, SEROUS DRAINAGE. IV WNL. PT UP TO AMBULATE DALEY AND USE BR. ICE PROVIDED. BOWEL TONES ACTIVE. ABD FIRM AT LOWER MIDLINE AND LOWER LEFT ABD, TENDER. NO OTHER NEEDS. CALL LIGHT IN REACH.
--- NOTE | 2020-02-27 06:10 | NUR ---
VITALS AND I&OS DONE AND CHARTED. BEDSIDE TABLE AND CALL LIGHT IN REACH. GARBAGES EMPTIED. PT NEEDS NOTHING AT THIS TIME. SHE IS RESTING IN BED.
--- NOTE | 2020-02-27 06:32 | NUR ---
PT SLEPT OFF AND ON THIS SHIFT. INCISIONS COVERED CDI, WNL. MARIA TERESA DRAIN HAD 38ML SEROUS OUTPUT, WNL. PT WALKED HALLS SEVERAL TIMES TONIGHT. IV WNL, FLUSHED WELL. PAIN MANAGED WITH MOTRIN. PT TOLERATED DIET WELL, NO N/V REPORTED. LOWER MIDLINE AND LEFT ABD FIRM AND TENDER. BOWEL TONES ACTIVE
--- NOTE | 2020-02-27 07:21 | NUR ---
Pt sitting up in bed, a&ox4. Pt on ra, resp even and non labored. Pt denies pain and needs at this time. Breakfast ordered.
--- NOTE | 2020-02-27 08:22 | NUR ---
PATIENT SITTING UP IN CHAIR. LINENS CHANGED. PATIENT GOES TO WALK IN THE HALLWAY. PATIENT BACKS TO CHAIR. CALL LIGHT WITHIN REACH. NO OTHER NEEDS AT THIS TIME
--- NOTE | 2020-02-27 08:41 | NUR ---
Ibuprofen 600mg po admin for reports of 4/10 abdominal pain.
--- NOTE | 2020-02-27 08:53 | NUR ---
PATIENT RESTING IN BED. VITAL SIGNS AND I&O DONE. CALL LIGHT WITHIN REACH. NO OTHER NEEDS AT THIS TIME
[2020-02-27] MEDS ORDERED: IBUPROFEN600 MG PO (10:47)
[2020-02-27] MEDS ORDERED: TYLENOL EXTRA500 MG PO (10:47)
== END 2020-02-27 11:57 | disposition home or self-care (01) | DRG 354 ==
LOC: ED 09:42 → MS 13:11
PROVIDERS: ADMIT Surgery
PROC: 0WUF0JZ Supplement Abdominal Wall with Synthetic Substitute, Open Approach (ICD-10-PCS; principal; 2020-02-23 16:30)
DX: K43.0 Incisional hernia with obstruction, without gangrene (principal); K55.1 Chronic vascular disorders of intestine; K65.4 Sclerosing mesenteritis; Z68.41 Body mass index [BMI] 40.0-44.9, adult; F17.290 Nicotine dependence, other tobacco product, uncomplicated; E66.01 Morbid (severe) obesity due to excess calories; Z20.828 Contact with and (suspected) exposure to other viral communicable diseases; Z88.0 Allergy status to penicillin
CPT/HCPCS: 00832; 36415; 74177; 80053; 81001; 84703; 85025; 94760; 94762; 96361; 96375; 99285-25; 99406; A9270; C1781; C9803; J0330; J1100; J1170; J1644; J1885; J2185; J2250; J2270; J2405; J2704; J2765; J3010; J7030; J7042; J7121; Q9967; U0002

== ENCOUNTER 2020-03-13 12:53 | Emergency (ER) | payer OTHER ==
[~2020-03-13] VITALS: Ht 167.6 cm; Wt 115.7 kg
[~2020-03-13 12:53] MED LIST changes: +IBUPROFEN600 MG PO; +TYLENOL EXTRA500 MG PO
--- OUTSIDE RECORDS SUMMARY | 2020-03-13 13:16 | XMS ---
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 Edward has no Care Guidelines for this patient. [facility] MO[facility] NOTE: Visits indicate total known visits. ED/C VISIT TRACKING (12 MO.) 03/13/2020 12:53 [facility] TYPE: Emergency COMPLAINT: - POST OP PROBLEM, SWELLING 02/23/2020 09:42 [facility] TYPE: Emergency COMPLAINT: - ABDOMINAL PAIN INPATIENT VISIT TRACKING (12 MO.) 02/23/2020 13:11 [facility] TYPE: Medical Surgical COMPLAINT: - SBO 2ND HERNIA DIAGNOSES: - Allergy status to penicillin - Chronic vascular disorders of intestine - Chronic vascular disorders of intestine - Sclerosing mesenteritis - Body mass index (BMI) 40.0-44.9, adult - Body mass index (BMI) 40.0-44.9, adult - Morbid (severe) obesity due to excess calories - Incisional hernia with obstruction, without gangrene - Nicotine dependence, other tobacco product, uncomplicated - Contact with and (suspected) exposure to other viral communic - Contact with and (suspected) exposure to other viral communic - Nicotine dependence, other tobacco product, uncomplicated - Morbid (severe) obesity due to excess calories - Allergy status to penicillin - Sclerosing mesenteritis [email or web address]
== END 2020-03-13 19:19 | disposition home or self-care (01) ==
LOC: ED 12:53
DX: R60.9 Edema, unspecified (principal); F17.200 Nicotine dependence, unspecified, uncomplicated; Z88.0 Allergy status to penicillin; Z79.899 Other long term (current) drug therapy
CPT/HCPCS: 71260; 74177; 76705; 80053; 83605; 84703; 85025; 85379; 87070; 87075; 87205; 93971; 96366; 99284-25; J3480; J7060; Q9967

== ENCOUNTER 2021-04-24 10:37 | Emergency (ER) | payer OTHER ==
[~2021-04-24] VITALS: Ht 167.6 cm; Wt 117.9 kg
== END 2021-04-24 15:26 | disposition home or self-care (01) ==
LOC: ED 10:37
DX: U07.1 COVID-19 (principal); J12.82 Pneumonia due to coronavirus disease 2019; F17.200 Nicotine dependence, unspecified, uncomplicated; Z88.0 Allergy status to penicillin
CPT/HCPCS: 71045; 99284-25; M0243; Q0244

== ENCOUNTER 2024-01-27 13:44 | Inpatient (IN) | payer OTHER ==
[~2024-01-27] VITALS: Ht 167.6 cm; Wt 110.1 kg
[2024-01-27] MEDS ORDERED: ondansetron HCL 4 MG/2 ML VIAL IV ONE (14:45)
[2024-01-27 14:46] LABS: BILIRUBIN, URINE NEGATIVE (negative); BLOOD/HGB, URINE NEGATIVE (Negative); KETONE, URINE NEGATIVE (Negative); LEUK ESTERASE, URINE NEGATIVE (negative); NITRITE, URINE NEGATIVE (negative); PH, URINE 5.5 (5-7)
[2024-01-27] MEDS ORDERED: ZYRTEC10 MG PO (15:00)
[2024-01-27 15:01] LABS: EOSINOPHILS 3.7 % (0-6); HEMATOCRIT 29.1 % (35.0-50.0); HEMOGLOBIN 8.3 g/dL (12.0-18.0); MCH 16.5 (27-36); MCHC 28.5 g/dl (30-36); MONOCYTES 6.9 % (0-12); NEUTROPHILS 76.4 % (39-80); PLATELET COUNT 254 K/uL (140-440); RBC 5.02 M/ul (4.3-5.7); RDW 22.3 (10.5-15.0)
[2024-01-27 15:19] LABS: ALBUMIN 3.3 g/dL (3.4-5.0); ALBUMIN/GLOBULIN RATIO 0.87 (1.1-2.4); ANION GAP 13.8 (7-21); BILIRUBIN, TOTAL 1.1 ng/dL (0.2-1.0); BUN/CREATININE RATIO 13.51 (6.0-28.6); CALCIUM 8.5 mg/dL (8.5-10.1); CREATININE, SERUM 0.74 mg/dL (0.55-1.02); POTASSIUM 3.8 mmol/L (3.5-5.1); PROTEIN, TOTAL 7.1 g/dL (6.4-8.2)
[2024-01-27] MEDS ORDERED: ondansetron HCL 4 MG/2 ML VIAL IV PRN ×2 (17:30→19:45)
[2024-01-27] MEDS ORDERED: LACTATED RINGER'S 1,000 ML IV SCH (17:30)
[2024-01-27] MEDS ORDERED: HYDROmorphone HCL 1 MG/ML SYR IV PRN ×2 (17:30→19:45)
[2024-01-27 18:10] VITALS: BP 189/103
--- NOTE | 2024-01-27 18:41 | NUR ---
ADMISSION COMPLETE. PATIENT IS SITTING UPRIGHT IN THE BED AT THIS TIME AND EATING DINNER. PATIENT IS ALERT AND ORIENTED TIMES FOUR. LUNG SOUNDS ARE CLEAR IN ALL LUNG ESPINAL BILATERALLY AND THE PATIENT IS ON ROOM AIR. CARDIAC WITH NORMAL S1 AND S2 ON AUSCULTATION. SENSATION INTACT AND THE PATIENT HAS NO COMPLAINTS OF NUMBNESS AND TINGLING AT THIS TIME. PATIENT RATED PAIN A 5.5/10 IN THE ABDOMEN AND BACK. PATIENT IS NOT REQUESTING PAIN MEDICATION AT THIS TIME. BOWEL TONES ARE ACTIVE IN ALL FOUR QUADRANTS AT THIS TIME. IV SITE IS CLEAN, DRY, AND INTACT. IV FLUSHED WITH 10 ML NORMAL SALINE. MAINTENANCE FLUIDS ARE INFUSING. PATIENT STATED NO FURTHER NEEDS, CALL LIGHT AND PERSONAL BELONGINGS ARE WITHIN REACH.
--- NOTE | 2024-01-27 19:01 | NUR ---
PATIENT UP TO BATHROOM AND BACK TO BED, SBA. CALL LIGHT IN REACH. NO FURTHER NEEDS AT THIS TIME.
--- NOTE | 2024-01-27 19:35 | NUR ---
REPORT RECEIVED FROM DAY RN. PATIENT RESTING IN BED. REPORTS PAIN IN ABDOMEN IS MILD AND DOES NOT WANT PAIN MEDICATIONS AT THIS TIME. IVF INFUSING WITH NO ISSUES OR CONCERNS. CALL LIGHT WITHIN REACH.
[2024-01-27] MEDS ORDERED: ACETAMINOPHEN 650 MG SUPP PR PRN (19:45)
[2024-01-27] MEDS ORDERED: ACETAMINOPHEN 325 MG TAB PO PRN (19:45)
[2024-01-27] MEDS ORDERED: PROCHLORPERAZINE EDISYLATE 10 MG/2 ML VIAL IV PRN (19:45)
[2024-01-27] MEDS ORDERED: DEXTROSE 5% - LACTATED RINGERS 1,000 ML IV SCH (19:45)
[2024-01-27] MEDS ORDERED: ENOXAPARIN SODIUM 40 MG/0.4 ML SYR SUB-Q SCH (19:45)
[2024-01-27] MEDS ORDERED: PANTOPRAZOLE SODIUM 40 MG/10 ML VIAL IV SCH (19:45)
[2024-01-27] MEDS ORDERED: HYDROmorphone HCL 4 MG TAB PO PRN (20:00)
[2024-01-27] MEDS ORDERED: bisacodyL 5 MG TABEC PO ONE (20:00)
[2024-01-27] MEDS ORDERED: POLYETHYLENE GLYCOL 3350 BOTTLE PO ONE (20:00)
[2024-01-27 20:34] VITALS: BP 151/79
[2024-01-27 20:37] VITALS: BP 151/79
--- NOTE | 2024-01-27 20:53 | NUR ---
PATIENT RESTING IN BED WITH DAUGHTER AT BEDSIDE. EATTING DINNER AT THIS TIME. ABD DISTENDED AND TENDER. BOWEL TONES ACTIVE X 4 QUADRANTS. PATIENT C/O PAIN 5/10, HOWEVER WOULD NOT LIKE PAIN MEDICATIONS AT THIS TIME. IVF INFUSING WITH NO ISSUES OR CONCERNS. PATIENT 1 PA ASSIST WHEN OUT OF BED DUE TO IV. PATIENT STEADY ON FEET. NO FURTHER NEEDS AT THIS TIME. CALL LIGHT WITHIN REACH.
--- NOTE | 2024-01-27 21:10 | NUR ---
DESEAN MCADAMSBAKERY TECHNICIAN CALLED AND TO BRING MIRALAX BOWEL PREP TO FLOOR.
--- NOTE | 2024-01-27 22:50 | EKG ---
[facility] [address] [facility] [place] [address] Signed Normal sinus rhythm Pulmonary disease pattern Left anterior fascicular block Abnormal ECG No previous ECGs available Confirmed by Sheela Murphy MD () on 01/27/2024 10:50:16 PM Electronically Signed By: SHEELA MURPHY MD 01/27/24 2250 PATIENT NAME: ESME HARDWICK Electrocardiogram DATE OF : 73 PHYSICIAN: SHEELA MURPHY MD REPORT #: [id number] REPORT IS CONFIDENTIAL AND NOT TO BE RELEASED WITHOUT AUTHORIZATION
--- NOTE | 2024-01-27 23:48 | NUR ---
PATIENT UP TO BATHROOM. PASSING LARGE AMOUTS OF GAS. PAIN 5/10 AT THIS TIME. DOES NOT WANT ANY MEDICATIONS AT THIS TIME. NO FURTHER NEEDS AT THIS TIME. CALL LIGHT WITHIN REACH.
[2024-01-28] VITALS (12 sets, daily range): BP systolic 124–153; BP diastolic 64–85
--- NOTE | 2024-01-28 00:41 | NUR ---
Patient up walking around room. C/O legs feeling "restless". Requesting hot packs. Hot packs given. No further needs at this time. Call light within reach.
--- NOTE | 2024-01-28 02:00 | NUR ---
PATIENT ASSISTED TO BATHROOM. AMBULATING WITH 1 PA STAND BY. LARGE LOOSE BM. BACK IN BED. PATIENT ENCOURAGED TO DRINK BOWEL PREP.
--- NOTE | 2024-01-28 02:20 | NUR ---
ROUNDED ON pt, pt RESTING QUIETLY IN BED WITH EYES CLOSED. ON RA, RR EVEN AND UNLABORED. NO DISTRESS NOTED. pt AWOKE EASILY TO VOICE, pt EDUCATED AND REMINDED pt IS TO NPO AT 0300, ENCOURAGED TO FINISH BOWEL PREP. EXAMINATION SUPERVISOR TO COLLECT VS. PRIMARY RN ANGEL UPDATED AND AWARE. CALL LIGHT IN REACH. COMMODE EMPTIED, X1 LIQUD BM NOTED MIXED WITH UNMEASURED VOID.
--- NOTE | 2024-01-28 03:14 | NUR ---
PATIENT ADMINISTERED ZOFRAN PRN FOR NAUSEA, ENCOURAGE TO CONITNUE BOWEL PREP WHEN NAUSEA IMPROVES, NEW IV SITE STARTED IN LEFT FA 20GA. IV CONTINUED TO ALARM DISTAL OCCLUSION FROM AC SITE IN BEND OF ARM. PATIENT TOLERATED WELL, SHE REPORTS NO FURTHER NEEDS AT THIS TIME, BSC PLACED NEXT TO BED WITH WET WIPES AND GARBAGE CAN.
--- NOTE | 2024-01-28 03:30 | NUR ---
PATIENT UNABLE TO FINISH BOWEL PREP ROUGHLY 240ML LEFT UNCONSUMED. PO FLUIDS TAKEN AWAY FROM PATIENT PER NPO AT 0300 ORDER. NO FURTHER NEEDS AT THIS TIME, CALL LIGHT WITHIN REACH.
[2024-01-28 05:39] LABS: BASOPHILS 0.9 % (0-2); EOSINOPHILS 4.4 % (0-6); HEMATOCRIT 28.3 % (35.0-50.0); HEMOGLOBIN 7.9 g/dL (12.0-18.0); MCH 16.2 (27-36); MCV 57.7 fl (81-99); MONOCYTES 7.3 % (0-12); NEUTROPHILS 74.4 % (39-80); PLATELET COUNT 254 K/uL (140-440)
--- NOTE | 2024-01-28 05:39 | NUR ---
PATIENT UP TO BEDSIDE COMODE. LOOSE BOWEL MOVEMENT. REPORTS MILD NAUSEA AT THIS TIME. IVF INFUSING WITH NO ISSUES OR CONCERNS. REPORTS NO PAIN AT THIS TIME. " MY STOMACH IS JUST UPSET." BOWEL TONES ACITVE X 4 QUADRANTS. CALL LIGHT WITHIN REACH.
[2024-01-28 05:52] LABS: ANION GAP 11.8 (7-21); BUN/CREATININE RATIO 10.52 (6.0-28.6); CALCIUM 8.3 mg/dL (8.5-10.1); CREATININE, SERUM 0.76 mg/dL (0.55-1.02); MAGNESIUM 1.8 mg/dL (1.8-2.4); PHOSPHORUS, INORGANIC 4.8 mg/dL (2.5-4.9); POTASSIUM 3.8 mmol/L (3.5-5.1)
--- NOTE | 2024-01-28 06:00 | CONS ---
[facility] [address] [place], [place] [address] Signed DATE OF CONSULTATION: 01/27/2024 CHIEF COMPLAINT: Periumbilical abdominal pain. HISTORY OF PRESENT ILLNESS: Mercedes is a 48-year-old obese female, who is born and raised and worked in [place], [place] her whole life. 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 She had bilateral tubal ligations in 2013. She ended up with at least three hernias in the four incisions. Dr. Landry repaired those with mesh back in 2019 and had to remove a couple feet of small bowel with a stapled anastomosis. She has also had an umbilical hernia about six months or so after that. It has been incarcerated and tender, but has not changed in size. For some reason, she has developed a supraumbilical hernia about the last six months according to the patient. The fascial defect is 4.5 cm, but it contains transverse colon. The entire herniated area is probably 20 cm. She thought there was increasing pain. She came to emergency room for evaluation. She has been a little nauseated from the pain, but no vomiting. She has been able eat and pass stool. Her white count is normal, but the CT scan did confirm a 7 mm fat containing umbilical hernia and a 4.5 cm supraumbilical hernia containing transverse colon. Interestingly, she does have some nodularity in the right breast and needs to follow up as an outpatient. We can see the matt in her bowel anastomosis in the right lower quadrant. I have been asked to admit her as a general surgeon on-call. PAST MEDICAL HISTORY: Seasonal allergies, umbilical hernia in 2020, sinusitis/rhinorrhea. PAST SURGICAL HISTORY: She has had laparoscopic bilateral tubal ligation [place] [address] Bermudez and then the lower abdominal hernia repairs x3 [place] [address] Landry requiring small bowel resection of 2 feet with a stapled anastomosis. SOCIAL HISTORY: She smokes. She does not drink. Jaimie Orona is her physician's reference assistant. She prefers the [facility]. Rickey Berumen is her significant other. At [phone]. She has two children born vaginally. 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 FAMILY HISTORY: None. REVIEW OF SYSTEMS: She had 10-systems reviewed and this was all negative other than the detail she gave me above. Electronically Signed By: TAWANDA BURT MD 01/28/24 0600 PATIENT NAME: MERCEDES HARDWICK CONSULTATION DATE OF : 73 REPORT #: [id number] PHYSICIAN: TAWANDA BURT MD PCP: JAIMIE ORONA PA-C REPORT IS CONFIDENTIAL AND NOT TO BE RELEASED WITHOUT AUTHORIZATION [address] [address] Signed ALLERGIES: Penicillin and codeine. MEDICATIONS: Ibuprofen and cetirizine. PHYSICAL EXAMINATION: VITAL SIGNS: Her blood pressure is 189/103, which she attributes to the pain. Heart rate 78, respiratory rate 20, temperature 97.8. She is 99% on room air. She is 5 feet 6 inches tall and 110 kg with a body mass index of 39. GENERAL: Mercedes is a 48-year-old obese female, lying in the left lateral decubitus position in her hospital bed, watching TV. She did not appear to be in any acute distress. LUNGS: Clear to auscultation bilaterally. HEART: Regular rate and rhythm without murmurs. ABDOMEN: Obese. She has incarcerated umbilical hernia probably 3 cm or more of tissue and then the supraumbilical hernia is probably 20 cm and it is incarcerated as well. It is a little tender, but not significantly so. No local signs or symptoms of infection. LABORATORY DATA: Her white blood count 9.4, hemoglobin 8.3, mean cell volume 58. Electrolytes unremarkable. Liver function tests are negative. Albumin 3.3. Beta-hCG negative. Urinalysis is negative. RADIOGRAPHIC STUDIES: CT scan and pelvis shows some nodular in the right breast, which needs followed up as an outpatient. She also has the 7 mm umbilical hernia fascial defect containing fat. She also has a 4.5 cm supraumbilical hernia fascial defect containing transverse colon that is not obstructed. ASSESSMENT AND PLAN: Mercedes is a 48-year-old obese female with some right breast nodularity but more importantly she has the incarcerated supraumbilical and umbilical hernias that are symptomatic. She has been admitted and we are going to hydrate her overnight. She thinks her high blood pressure is from pain. She thinks she can actually take a bowel prep tonight. I gave her our brochure on hernias and we reviewed that in detail. She understands the difference between a primary suture repair and a mesh repair. She understands that she will likely be in the hospital a few days. We had reviewed the risks including, but not limited to bleeding, infection, scarring, change in contour of the skin, damage to bowel, infection of mesh requiring removal, recurrent hernias and chronic pain. She had expressed understanding wished to proceed. Electronically Signed By: TAWANDA BURT MD 01/28/24 0600 PATIENT NAME: MERCEDES HARDWICK CONSULTATION DATE OF : 73 REPORT #: [id number] PHYSICIAN: TAWANDA BURT MD PCP: JAIMIE ORONA PA-C REPORT IS CONFIDENTIAL AND NOT TO BE RELEASED WITHOUT AUTHORIZATION [address] [place] [address] Signed Tawanda Burt MD [facility] /[id number] cc: Patient chart MD Jaimie Corona PA-C Copies: TAWANDA BURT MD, CHLOE K PA-C ~ Electronically Signed By: TAWANDA BURT MD 01/28/24 0600 PATIENT NAME: MERCEDES HARDWICK CONSULTATION DATE OF : 73 REPORT #: [id number] PHYSICIAN: TAWANDA BURT MD PCP: JAIMIE ORONA PA-C REPORT IS CONFIDENTIAL AND NOT TO BE RELEASED WITHOUT AUTHORIZATION
[2024-01-28] MEDS ORDERED: MAGNESIUM SULFATE 2 GM/50 ML BAG IV ONE (06:15)
[2024-01-28 07:06] LABS: ABO A; ANTIBODY SCREEN NEGATIVE; RH NEGATIVE
--- NOTE | 2024-01-28 07:09 | NUR ---
REPORT RECEIVED FROM EDUCATION INTERN RN ANGEL. PATIENT IS LYING IN BED AWAKE AND RESPIRATIONS ARE EVEN AND UNLABORED. PATIENT STATED NO FURTHER NEEDS AT THIS TIME. CALL LIGHT AND PERSONAL BELONGINGS ARE WITHIN REACH.
--- NOTE | 2024-01-28 08:01 | NUR ---
UR CLINICAL REVIEW: [facility] CRITERIA [facility] IN[facility] 01/27/24 @ 1723 [facility] FAXED FOR REVIEW DISCHARGE HOME WHEN STABLE 01/29/24
--- NOTE | 2024-01-28 08:34 | NUR ---
ASKED PATIENT IF SHE WOULD LIKE TO BRUSH HER TEETH OR WASH HER FACE AND SHE SAID NOT RIGHT NOW. EMPTIED BEDSIDE COMMODE.
[2024-01-28] MEDS ORDERED: CEFTRIAXONE/SODIUM CHLORIDE 2 GM/100 ML PIGGYBACK IV SCH (09:00)
[2024-01-28] MEDS ORDERED: ADVIL200 MG PO (09:02)
--- NOTE | 2024-01-28 09:02 | NUR ---
MED REC COMPLETE
--- NOTE | 2024-01-28 09:29 | NUR ---
0900 MEDICATIONS ADMINISTERED PER THE EMAR. FULL ASSESSMENT COMPLETE AND DOCUMENTED IN THE CHART. PATIENT IS LYING IN BED WITH PAIN RATED 2/10 A HEADACHE. PATIENT EDUCATED ON THE AVAILABILITY TO HAVE DILAUDID. PATIENT REFUSED AT THIS TIME. PATIENT IS ALERT AND ORIENTED TIMES FOUR. LUNG SOUNDS ARE CLEAR IN ALL LUNG ESPINAL BILATERALLY. PATIENT IS ON ROOM AIR. CARDIAC WITH NORMAL S1 AND S2 ON AUSCULTATION. SENSATION INTACT AND WITH NO COMPLAINTS OF NUMBNESS AND TINGLING. BOWEL TONES ARE ACTIVE IN ALL FOUR QUADRANTS. HEARNIA NOTED ON THE ABDOMEN. PATIENT IS NPO AT THIS TIME DUE TO SURGERY LATER TODAY. PATIENT SKIN INTACT. IV SITE IN THE LAC AND THE LEFT FOREARM FLUSHED WITH 10 ML NORMAL SALINE WITH MEDICATIONS AND FLUIDS INFUSING AT THIS TIME. IV DRESSINGS ARE CLEAN, DRY, AND INTACT. PATIENT STATED NO FURTHER NEEDS AT THIS TIME, CALL LIGHT AND PERSONAL BELONGINGS ARE WITHIN REACH.
[2024-01-28] MEDS ORDERED: METOCLOPRAMIDE HCL 10 MG/2 ML SDV ONE (10:13)
[2024-01-28] MEDS ORDERED: fentaNYL citrate 100 MCG/2 ML VIAL ONE (10:13)
[2024-01-28] MEDS ORDERED: SUGAMMADEX SODIUM 200 MG/2 ML ML ONE (10:13)
[2024-01-28] MEDS ORDERED: ROCURONIUM BROMIDE 50 MG/5 ML SYR ONE (10:13)
[2024-01-28] MEDS ORDERED: KETOROLAC TROMETHAMINE 30 MG/ML VIAL ONE (10:13)
[2024-01-28] MEDS ORDERED: MIDAZOLAM HCL 2 MG/2 ML VIAL ONE (10:13)
[2024-01-28] MEDS ORDERED: DEXAMETHASONE SOD PHOS 4 MG/ML VIAL ONE (10:13)
[2024-01-28] MEDS ORDERED: propofoL 200 MG/20 ML VIAL ONE (10:13)
[2024-01-28] MEDS ORDERED: ondansetron HCL 4 MG/2 ML VIAL ONE (10:13)
[2024-01-28] MEDS ORDERED: FAMOTIDINE 20 MG/ 2 ML VIAL ONE (10:13)
[2024-01-28] MEDS ORDERED: LACTATED RINGER'S 1,000 ML IV ONE (10:13)
[2024-01-28] MEDS ORDERED: LIDOCAINE HCL 4% 5 ML AMP ONE (10:13)
[2024-01-28] MEDS ORDERED: SUCCINYLCHOLINE IN 0.9% NACL 200 MG/10 ML SYRINGE ONE (10:13)
--- NOTE | 2024-01-28 10:21 | NUR ---
PATIENT ALERT AND ORIENTED IN BED. DEMOGRAPHICS VERIFIED WITH PATIENT. PHYSICAL ADDRESS IS [address] [place] [address], [place] [address]. PATIENT LIVES IN SINGLE LEVEL HOME WITH SIGNIFICANT OTHER, SHEELA. STATES SHE HAS NO DME. REMAINS ABLE TO DRIVE. SIGNIFICANT OTHER WILL ASSIST WITH TRANSPORTATION AT ID. PATIENT HAS NO FINANCIAL ISSUES. ABLE TO PAY UTILITIES AND FOR FOOD AND MEDS WITHOUT DIFFICULTY. DENIES OTHER NEEDS AT THIS TIME. INSTRUCTED TO NOTIFY STAFF IF NEEDS ARISE. VERBALIZES UNDERSTANDING.
--- NOTE | 2024-01-28 10:23 | NUR ---
PATIENT PRE-PROCEDURE WIPE DOWN COMPLETE. PATIENT EDUCATED ON WHEN SURGERY IS. PATIENT WITH VISITOR SITTING IN THE CHAIR AT BEDSIDE. PATIENT STATED NO FURTHER NEEDS AT THIS TIME. CALL LIGHT AND PERSONAL BELONGINGS ARE WITHIN REACH.
[2024-01-28] MEDS ORDERED: droPERidol 5 MG/2 ML VIAL IV PRN (10:30)
[2024-01-28] MEDS ORDERED: IBLOOD GLUCOSE TEST STRIP 1 EA TEST VI PRN (10:30)
[2024-01-28] MEDS ORDERED: METOCLOPRAMIDE HCL 10 MG/2 ML SDV IV PRN (10:30)
[2024-01-28] MEDS ORDERED: MEPERIDINE HCL 25 MG/1 ML VIAL IV PRN (10:30)
[2024-01-28] MEDS ORDERED: PROCHLORPERAZINE EDISYLATE 10 MG/2 ML VIAL IV PRN (10:30)
[2024-01-28] MEDS ORDERED: ondansetron HCL 4 MG/2 ML VIAL IV PRN (10:30)
[2024-01-28] MEDS ORDERED: NALOXONE HCL 0.4 MG SYR IV PRN (10:30)
[2024-01-28] MEDS ORDERED: fentaNYL citrate 50 MCG/ML SDV IV PRN (10:30)
--- NOTE | 2024-01-28 10:55 | NUR ---
PATIENT LEFT FOR THE OR WITH AN OR NURSE.
--- NOTE | 2024-01-28 11:32 | NUR ---
PATIENT IS OFF THE FLOOR AND IN SURGERY AT THIS TIME.
--- NOTE | 2024-01-28 12:00 | NUR ---
ATTEMPTED TO VISIT DURING SPIRITUAL CARE ROUNDS. PT GONE FOR PROCEDURE. PROVIDED PRAYER.
--- NOTE | 2024-01-28 12:28 | NUR ---
PATIENT IS OFF THE FLOOR AND IN SURGERY.
[2024-01-28] MEDS ORDERED: NALOXONE HCL 0.4 MG/ML VIAL ONE (13:25)
--- NOTE | 2024-01-28 13:46 | NUR ---
01/28/24 1346 Magda Alanis 1321-PATIENT ARRIVED TO PACU ON 15L OXYMASK NUNU FIELD DOING JAW THRUST NONAROUSABLE AND ORAL AIRWAY IN PLACE. SR HR 70-80'S. RN TAKES OVER JAW THRUST. 02 SAT 92% DRESSING TO ABDOMEN CDI. PATIENT THEN PLACED ON 15L NONREBREATHER WITH NC IN NOSE. O2 SAT 89-LOW 90'S. 1327-NUNU FIELD AT BEDSIDE ADMINISTERING 0.4MG NARCAN IVP. 02 SAT SLOWLY INCREAESED TO 98% REMAINS ON 15L NONREBREATHER. PATIENT IS NONAROUSABLE. ORAL AIRWAY IN PLACE. RN CONTINUING TO DO JAW THRUST TO MAINTAIN OPEN AIRWAY. HOB ELEVATED. 1335-PATIENT STARTING TO COUGH FACE RED HOB IS ELEVATED ORAL AIRWAY REMOVED REACTIVE TO VERBAL STIMULI OPENING EYES. PATIENTS MOUTH SUCTIONED THIN SECRETIONS. NONREBREATHER [address] 1343-NUNU FIELD AT BEDSIDE PATIENT AWAKE, DROWSY. PATIENT REPORTS "CLAUSTROPHOBIC" PATIENT PLACED ON 4L NC NONREBREATHER MASK REMOVED. 98% RR EVEN. PATIENT DENIES PAIN OR NAUSEA. REPORTS "JUST TIRED" ENCOURAGED TO REST AND CLOSES EYES.
--- NOTE | 2024-01-28 13:49 | NUR ---
PATIENT REMAINS OFF THE FLOOR AT THIS TIME.
[2024-01-28] MEDS ORDERED: ALBUTEROL/IPRATROPIUM 3 ML NEB ONE (14:18)
[2024-01-28] MEDS ORDERED: ALBUTEROL/IPRATROPIUM 3 ML NEB INH ONE (14:30)
--- NOTE | 2024-01-28 14:50 | NUR ---
PATIENT IS OFF THE FLOOR AT THIS TIME.
--- NOTE | 2024-01-28 15:10 | NUR ---
Patient arrives to CCU post op from hernia surgery. At time of arrival patient requiring 4L O2 NC. This RN able to titrate patient down to 2L and SPO2 remains >95%. Patient drowsy but oriented. HRR. LSC. midline incision C/D/I with matt and gauze. Pt reports no pain or nausea. IV sites assessed WNL. D5LR infusing per order. SCDs in place. Clear liquid diet- sips of water tolerated at this time.
--- NOTE | 2024-01-28 15:54 | OR ---
[facility] [address] [place], [place] [address] Signed DATE OF OPERATION: 01/28/2024 SURGEON: Tawanda Burt MD PREOPERATIVE DIAGNOSES: 1. Incarcerated umbilical hernia (1.2 cm). 2. Incarcerated supraumbilical/epigastric hernia (4 cm). POSTOPERATIVE DIAGNOSES: 1. Incarcerated umbilical hernia (1.2 cm). 2. Incarcerated supraumbilical/epigastric hernia (4 cm). PROCEDURE: Primary repair of epigastric and umbilical hernias with intra-abdominal Ventralex mesh (8 cm, 6 cm). ESTIMATED BLOOD LOSS: None. INDICATIONS: Mercedes is a 48-year-old obese female, who had a bilateral laparoscopic tubal ligation [place] [address] Bermudez. She came in 2019 with incisional hernias which were rather substantial. They were repaired by Dr. Landry with the help of Vicryl mesh placed in the preperitoneal space requiring resection of about 2 feet of her terminal ileum with a stapled [id number] anastomosis. That bowel had been ischemic. She has been doing fine, but she talked about an umbilical hernia for at least six months and above the umbilical hernia, she has a rather sizable probably 15 or 20 cm area of herniated tissue in the epigastric midline. She thought it was getting worse, so she came to emergency room for evaluation[place] Neither hernia was reducible. Her white count was normal. Beta HCG of course was negative. CT scan of abdomen and pelvis showed the 7 mm incarcerated umbilical hernia containing fat. She had a 4.5 cm supraumbilical hernia containing transverse colon and some nodularity to her right breast area. She also has stapled small bowel anastomosis in the right lower quadrant. I have been asked to admit her as a general surgeon on-call. I seen her last night here in the hospital. She had pain but no nausea or vomiting. She felt like she could take a bowel prep. She took about half of our polyethylene glycol prep and did fairly well with lots of liquid brown stool. She said overall she did feel better after the prep. At that point, the transverse colon was more reducible, but not completely reducible. I had brought a brochure on hernias and we looked at it carefully. I explained to her the two hernias and the need to use mesh. She is very obese and she Electronically Signed By: TAWANDA BURT MD 01/28/24 1554 PATIENT NAME: MERCEDES HARDWICK OPERATIVE REPORT DATE OF : 73 REPORT #: [id number] PHYSICIAN: TAWANDA BURT MD PCP: JAIMIE GUALLPA PA-C REPORT IS CONFIDENTIAL AND NOT TO BE RELEASED WITHOUT AUTHORIZATION [address] [address] Signed also smokes, so she is at high risk for recurrence. She understands that her primary suture repair probably would hold up. We had reviewed the expected intraop and postop course. She understands there is risk including, but not limited to bleeding, infection, scarring, change in contour of the skin, damage to bowel, infection of mesh requiring removal, recurrent hernias and chronic pain. She had expressed understanding and wished to proceed. PROCEDURE IN DETAIL: Mercedes was taken into our operating room and placed in the supine position under general endotracheal tube anesthesia. She was on preoperative antibiotics along with subcutaneous Lovenox. SCDs were also in place. A Mckinley catheter was inserted with return of clear yellow urine without difficulty. She was prepped and draped in the usual sterile fashion. Her umbilical hernia was not reducible whatsoever. Again, her epigastric hernia was partially reducible. We used a standard midline periumbilical incision and carried it down through the tissues with the help of the cautery. We went on the umbilical hernia 1st and excised the hernia sac along with some epiploic fat from the transverse colon. This gave us digital access into the epigastric hernia. We excised that hernia sac as well and passed it off the field. That fascial defect was a good 4 cm in diameter. The umbilical fascial defect was probably about 1.2 cm. We chose our 6 cm round Ventralex mesh, we placed it through the umbilical fascial defect 1st. There was about 3 cm of fascia between two fascial defects. She has tremendous lateral tension on her abdominal wall. Consequently, we decided to close the hernias transversely rather than vertically. We used #1 interrupted [id number] Prolene sutures to close the umbilical fascial defect transversely and went through the tab on the mesh to help hold it in place. The tab was cut, flushed with the abdominal wall. After this, we chose our 8 cm round Ventralex mesh, we placed it through the epigastric hernia fascial defect under direct visualization. There was just a small amount of overlap of the two pieces of mesh. We think that is going to probably work out just fine given the amount of preperitoneal fat that she has. Again, that fascial defect was also closed transversely with interrupted #1 [id number] Prolene sutures. Again, the suture went through the tab on the mesh to help hold it in place and keep it centered. The tab was then cut, flushed with the abdominal wall and discarded. Local anesthetic was then copiously injected into her abdominal wall. The wound was irrigated and suctioned out until clear. We brought the umbilicus back down the midline fascia with three interrupted PDS sutures. The dermis was reapproximated with interrupted 3-0 subcuticular Monocryl sutures. Skin edges were reapproximated with matt. After this, dry gauze and tape was applied. We removed Mercedes's Mckinley catheter while she was asleep without difficulty. She was awakened from anesthesia, extubated in the OR, and taken to recovery room in stable condition. Electronically Signed By: TAWANDA BURT MD 01/28/24 1554 PATIENT NAME: MERCEDES HARDWICK OPERATIVE REPORT DATE OF : 73 REPORT #: [id number] PHYSICIAN: TAWANDA BURT MD PCP: JAIMIE GUALLPA PA-C REPORT IS CONFIDENTIAL AND NOT TO BE RELEASED WITHOUT AUTHORIZATION [address] [address] Signed Tawanda Burt MD [facility] /[id number] cc: MD Jaimie Corona PA-C Copies: TAWANDA BURT MD, CHLOE K PA-C ~ Electronically Signed By: TAWANDA BURT MD 01/28/24 1554 PATIENT NAME: MERCEDES HARDWICK OPERATIVE REPORT DATE OF : 73 REPORT #: [id number] PHYSICIAN: TAWANDA BURT MD PCP: JAIMIE GUALLPA PA-C REPORT IS CONFIDENTIAL AND NOT TO BE RELEASED WITHOUT AUTHORIZATION
--- NOTE | 2024-01-28 16:36 | NUR ---
Patient ambulates to BR to void 800ml. SPO2 remains >90% on RA when walking and sitting straight up-- once lying down with neck compressed, requires 1L O2 to remain above 88%. now 100% on 1L.
--- NOTE | 2024-01-28 19:30 | NUR ---
REPORT RECEIVED AND CARE ASSUMED FROM DENZEL LANTIGUA. PT SITTING IN CHAIR TALKING ON PERSONAL CELLPHONE WITH FAMILY. VSS AND NAD NOTED VIA DIRECT OBS, PT STATEMENT AND CONTINUOUS MONITOR.
--- NOTE | 2024-01-28 20:23 | NUR ---
SHIFT ASSESSMENT COMPLETE. SEE [email or web address] FOR DETAILS. PT REQUESTED AND PROVIDED PAIN MEDICATION FOR ABD PAIN POST DURGERY. PT DENIES ADDITIONAL NEEDS. CALL LIGHT IN REACH. PERSONAL ITEMS IN REACH. PT VERBALIZES UNDERSTANDING TO USE CALL LIGHT WITH NEEDS. BED IN LOW LOCKED POSITION. PT RESTING IN BED. PT AMBULATED FROM CHAIR TO BED WITH SBA. VSS AND NAD NOTED VIA DIRECT OBS, PT STATEMENT AND CONTINUOUS MONITOR.
--- NOTE | 2024-01-28 21:06 | NUR ---
PATIENT UP TO BATHROOM, STANDBY ASSIST, VOIDED 325ML YELLOW URINE, THERE WAS 650ML IN HAT TO BE DUMPED FROM PRIOR VOID. NO REPORT OF PAIN OR NAUSEA, NO INCREASE WORK OF BREATHING, NO OXYGEN DESATURATION. SHE IS NOW TALKING ON CELL PHONE WITH HER SPOUSE
--- NOTE | 2024-01-28 22:06 | NUR ---
PT RESTING IN BED WATCHING TELEVISION. PT DENIES NEEDS AT THIS TIME. PT VERBALIZES UNDERSTANDING TO USE CALL LIGHT WITH NEEDS. MIDLINE INC DRESSING C/D/I. CALL LIGHT IN REACH. BED IN LOW, LOCKED POSITION. VSS AND NAD NOTED VIA DIRECT OBS, CONTINUOUS MONITOR AND PT STATEMENT.
--- NOTE | 2024-01-28 22:42 | NUR ---
PT SNORING WHEN FALLING ASLEEP. PT O2 SAT 88% ON RA. PT PLACED ON 1L NC WITH SAT 93%. RT NOTIFIED FOR UPDATE. PT EASILY AWAKENED TO VOICE. VSS AND NAD NOTED VIA CONTINUOUS MONITOR, PT STATEMENT AND DIRECT OBS.
[2024-01-29] VITALS (13 sets, daily range): BP systolic 142–182; BP diastolic 65–99
--- NOTE | 2024-01-29 00:20 | NUR ---
SHIFT ASSESSMENT COMPLETE. SEE [facility] FOR DETAILS. PT RESTING IN BED WITH EYES CLOSED, SNORING. PT EASILY AWAKENED TO VOICE. PT DENIES NEEDS AT THIS TIME. PT STATES SHE IS FALLING ASLEEP ON AND OFF WHILE WATCHING TELEVISION AND TIKTOK ON PERSONAL CELL. PT DENIES NEEDS AT THIS TIME. PT STATES IMPROVED PAIN LEVEL AFTER PRN PAIN MED ADMINISTRATION. ABD INCISION DRSG REMAINS C/D/I. BED IN LOW, LOCKED POSITION. CALL LIGHT IN REACH. VSS AND NAD NOTED VIS DIRECT OBS, PT STATEMENT AND CONTINUOUS MONITOR.
--- NOTE | 2024-01-29 02:06 | NUR ---
PT RESTINGI NBED, EYES CLOSED. PT EASILY AWAKENED TO VOICE. PT DENIES NEEDS OR PAIN AT THIS TIME. PT VERBALIZES UNDERSTANDING TO USE CALL LIGHT WITH NEEDS. BED IN LOW, LOCKED POSITION. PIV PATENT WITH MAINTENANCE FLUIDS INFUSING PER EMAR. 1L NC IN PLACE. VSS AND NAD NOTED VIA DIRECT OBS, CONTINUOUS MONITOR AND PT STATEMENT.
--- NOTE | 2024-01-29 03:55 | NUR ---
SHIFT ASSESSMENT COMPLETE. [facility] PT REQUESTED AND PROVIDED SBA TO BATHROOM AND BACK. PT REQUESTED AND PROVIDED PAIN MEDICATION PER EMAR AND ICE WATER. PT DENIES ADDITIONAL NEEDS. ABD INCISION DRSG REMAINS C/D/I. CALL LIGHT AND PERSONAL ITEMS AT BEDSIDE. BED IN LOW, LOCKED POSITION. PT DEMONSTRATES UNDERSTANDING TO USE CALL LIGHT WITH NEEDS. PIV PATENT WITH MAINTENANCE FLUIDS INFUSING. 1L NC IN PLACE. VSS AND NAD NOTED VIA CONTINUOUS MONITOR. DIRECT OBS AND PT STATEMENT.
--- NOTE | 2024-01-29 06:17 | NUR ---
PT REQUEST BLINDS TO BE CLOSED. BLINDS CLOSED, NO ADDITIONAL NEEDS STATED. CALL LIGHT IN REACH. BED IN LOW, LOCKED POSITION. VSS AND NAD NOTED VIA DIRECT OBS, PT STATEMENT AND CONTINUOUS MONITOR.
[2024-01-29] MEDS ORDERED: HYDROmorphone HCL 2 MG TAB PO PRN (06:45)
--- NOTE | 2024-01-29 07:00 | NUR ---
REPORT GIVEN AND CARE ENDORSED TO ONCOMING SHIFT. VSS VIA CONTINUOUS MONITOR.
--- NOTE | 2024-01-29 07:30 | NUR ---
report from sonido rn, pt just seen by dr crisostomo and crystal from abd removed. pt awake and alert with call light in reach. new orders.
--- NOTE | 2024-01-29 07:59 | NUR ---
pt amb to br to void with standby assist. then to chair for meds and meal. see emar. call light in reach.
[2024-01-29] MEDS ORDERED: PANTOPRAZOLE SODIUM 40 MG TABEC PO SCH (09:00)
--- NOTE | 2024-01-29 09:07 | NUR ---
PATIENT UP TO BR FOR VOID. OXYGEN SATS 91-92 WITH ACTIVITY. PATIENT AMBULATING IN ROOM AT THIS TIME. RN AWARE. CALL LIGHT IN EASY REACH
--- NOTE | 2024-01-29 09:35 | NUR ---
talked with vini kendrick associate media planner ok to call krish dumont to schedule dr crisostomo appt. fax to krish per her request. pt up in room waiting for trsf to ms 123. call to gelnny turcios charge - waiting for rn to give report to. pt denies needs, call light in reach.
--- NOTE | 2024-01-29 10:03 | NUR ---
report to ericka turcios -
--- NOTE | 2024-01-29 10:10 | NUR ---
RECIEVED HAND OFF REPORT FROM DENZEL MARTE. PT AMBULATED TO WA ROOM 123 W/O DIFFICULTY. DENIES PAIN AND NAUSEA. REQUESTED TO LAY DOWN FOR A NAP. CONNECTED TO IVF. SURGICAL INCISION SITE INTACT BY MARISSA, NO SIGNS OF INFECTION. NO DRAINAGE. CALL LIGHT IN REACH.
--- NOTE | 2024-01-29 10:10 | NUR ---
pt amb to room 123 ms with standby assist of rn ericka. all items trasfered with pt and report to nurse.
--- NOTE | 2024-01-29 10:54 | NUR ---
SPOKE TO PATIENT ABOUT THE DISCHARGE PLAN.PER THE MD THE PATIENT WILL STAY ONE MORE DAY.THE PATIENT STATES SHE HAS NO DISCHARGE NEEDS AT THIS TIME.
--- NOTE | 2024-01-29 11:48 | NUR ---
CONCURRENT UR REVIEW: [facility] HERNIA REPAIR GUIDELINE MEETS INPT CRITERIA INPT 01/27/24 @ 1723 PLAN TO DC HOME WHEN STABLE NEXT REVIEW 02/01/24
--- NOTE | 2024-01-29 12:32 | NUR ---
DID HRLY ROUNDING ON PT SHE WAS SITING ON THE EDGE OF THE BED EATING HER LUNCH. PT JUST WANTED MORE WATER AND DIDNT NEED ANYTHING ELSE CALL LIGHT IS WITHIN RAECH.
--- NOTE | 2024-01-29 14:20 | NUR ---
REPORT RECIEVED FROM DENZEL FAGAN. PT SITTING UP ON EDGE OF BED VISITING WITH FAMILY MEMBER. IV INFUSING WNL. PT REPORTING "ACHE" IN ABD. ICE PACK PROVIDED PER PT REQUEST. MIDLINE INCISION OPEN TO AIR WITH MARISSA IN PLACE, NO REDNESS NOTED TO AREA, NOT WARM TO TOUCH. EDGES OF INCISION WELL APPROXIMATED. ICE WATER PROVIDED. PT DENIES ANY OTHER NEEDS AT THIS TIME. CALL LIGHT IN REACH.
--- NOTE | 2024-01-29 14:43 | NUR ---
VISITED DURING SPIRITUAL CARE ROUNDS. DAUGHTER IN ROOM WITH PT. LISTENED EMPATHETICALLY PATIENT TALKED OF FAMILY AND PETS. PROVIDED SUPPORTIVE PRESENCE, HOSPITALITY, PRAYER. PATIENT EXPRESSED APPRECIATION.
--- NOTE | 2024-01-29 16:58 | NUR ---
IN TO ROUND ON AND ASSESS PT. PT RESTING IN BED SEMI-FOWLERS, USING CELLPHONE. PT RESPONDS WHEN GREETED, GRIMACE NOTED. PT REPORTS INCISIONAL/ABDOMINAL PAIN 4/10 RESTING, 7/10 WHEN MOVING AROUND. MIDLINE INCISION WITH MARISSA NOTED OPEN TO AIR, DRY, NO REDNESS/HEAT. LUNG SOUNDS CLEAR IN BUL, CRACKLES IN BLL. PT EDUCATED ON IS USE, DEMONSTRATES USE x12 AND EXPECTORATES SPUTUM WHICH SHE SWALLOWS. PT EDUCATED TO UTILIZE PILLOW SPLINTING FOR MOVING/COUGHING TO ASSIST WITH PAIN. BOWEL TONES HEARD THROUGHOUT, ABDOMINAL TENDERNESS IN UPPER QUADRANTS, SOFT AND NONTENDER IN LOWER QUADRANTS. DENZEL LANGLEY ARRIVES WITH PRN TYLENOL PER OCT. MEDICATION ADMINISTERED. PT REPORTS NO OTHER NEEDS AT THIS TIME, CALL LIGHT IN REACH.
--- NOTE | 2024-01-29 17:03 | NUR ---
IN PT REPORTING PAIN 12/09 TO ABD. PRN TYLENOL ADMINISTERED, SEE MAR. PT DENIES ANY OTHER NEEDS FROM THIS RN AT THIS TIME. CALL LIGHT IN REACH. SN NI STILL IN ROOM.
--- NOTE | 2024-01-29 19:05 | NUR ---
REPORT RECEIVED FROM SHIVAM MAHONEY. pt GETTING UP TO WALK IN THE HALLS. pt REQUESTED A ICE PACK. NO OTHER NEEDS AT THIS TIME. CALL LIGHT WITHIN REACH.
--- NOTE | 2024-01-29 20:15 | NUR ---
pt RESTING IN THE BED. WATER REFRESHED. pt REQUESTED HERVE AT THIS TIME. MID-LINE INCISION WITH MARISSA, EDGES WELL APPROXAMATED, CDI. NO DRAINAGE NOTED. pt DENIES ANY PAIN OR ANY OTHER NEEDS AT THIS TIME. ASSESSMENT AND VITAL SIGNS DONE. CALL LIGHT WITHIN REACH.
--- NOTE | 2024-01-30 00:30 | NUR ---
pt C/O 03/10 PAIN. PRN PAIN MEDICATION ADMINISTERED. pt DENIES ANY OTHER NEEDS AT THIS TIME. CALL LIGHT WITHIN REACH.
--- NOTE | 2024-01-30 02:34 | NUR ---
pt RESTING IN THE BED WITH EYES CLOSED. RR EVEN AND UNLABORED. CALL LIGHT WITHIN REACH.
--- NOTE | 2024-01-30 04:22 | NUR ---
pt C/O 01/08 PAIN. PRN PAIN MEDICATION ADMINISTERED, SEE MAR. ICE PACK GIVEN. pt DENIES ANY OTHER NEEDS AT THIS TIME. CALL LIGHT WITHIN REACH.
[2024-01-30 05:38] VITALS: BP 161/84
--- NOTE | 2024-01-30 05:39 | NUR ---
in room with tank truck driver to collect vs and i&o's. vss, fresh ice water provided. iv fluids infusing wnl, call light in reach. board updated and room tided.
--- NOTE | 2024-01-30 05:40 | NUR ---
CARD PUNCHING MACHINE OPERATOR AND RN ENTERED ROOM. VITALS AND I&O DOCUMENTED. PT GIVEN FRESH ICE WATER. PT STATES NO FURTHER NEEDS AT THIS TIME. CALL LIGHT PLACED WITHIN REACH.
--- NOTE | 2024-01-30 07:25 | NUR ---
REPORT RECIEVED FROM DENZEL HOUSTON. PT LAYING IN BED SEMI-FOWLERS. PT ADDRESSES THIS RN WHEN ENTERING ROOM. PT ASKING ABOUT LORI VÁSQUEZ. WILL ASK DR. BURT WHEN DR. BURT IS HERE TO SEE PT. PT DENIES ANY OTHER NEEDS AT THIS TIME. CALL LIGHT IN REACH. IV INFUSING WNL.
--- NOTE | 2024-01-30 08:26 | NUR ---
PT SITTING UP IN CHAIR AT THIS TIME. IV FLUIDS INFUSING. PT REQUESTING PAIN MEDS FOR 3/10 ABDOMINAL PAIN. OFFERED FRESH ICE WATER AND PT DECLINED. SITTING UP IN CHAIR AT THIS TIME, ALL PT CARE NEEDS MET. CALL LIGHT WITHIN REACH.
--- NOTE | 2024-01-30 09:38 | NUR ---
IN TO ADMINISTER MEDICATION, SEE MAR. PT TAKES PO MEDICATION WITH NO ISSUES. PT REPORTING PAIN /. PRN TYLENOL ADMINISTERED PREVIOUSLY. ASSESSMENT COMPLETE. LUNG SOUNDS CLEAR. BOWEL TONES ACTIVE. ABD TENDER WITH PALPATION. MIDLINE INCISION OPEN TO AIR. MARISSA IN PLACE, EDGES WELL APPROXIMATED, NO REDNESS NOTED. MIDLINE INCISION NOT WARM TO TOUCH. PT REPORTS PASSING FLATUS. PT DENIES ANY NUMBNESS OR TINGLING IN EXTREMITIES. IV FLUSHES WNL. WATER PROVIDED. PT DENIES ANY OTHER NEEDS AT THIS TIME. CALL LIGHT IN REACH.
[2024-01-30 10:12] VITALS: BP 179/96
[2024-01-30 11:29] VITALS: BP 179/96
--- NOTE | 2024-01-30 11:43 | NUR ---
IN WITH DR. BURT. DR. BURT DISCUSSING WITH PT DC. PT AGREEABLE. DAYSURGERY CALLED FOR LORI WOLF. IV REMOVED WNL, SEE VASCULAR ACCESS. PT DENIES ASSISTANCE WITH GETTING DRESSED. PT DENIES ANY OTHER NEEDS AT THIS TIME. CALL LIGHT IN REACH.
[2024-01-30] MEDS ORDERED: DILAUDID2 MG PO (12:02)
[2024-01-30 12:24] VITALS: BP 158/95
--- NOTE | 2024-01-30 12:27 | NUR ---
IN TO GO OVER DC INSTRUCTIONS. VERBAL AND WRITTEN DC INSTRUCTIONS PROVIDED. QUESTIONS ANSWERED. BELONGINGS RETURNED. PT VERBALIZES UNDERSTANDING. ABD BINDER PROVIDED FOR PT. PATY PUENTES IN ROOM TO OBTIAN VITALS AND WHEEL PT OUT TO FRONT. PT NOTED TO HAVE RX IN HAND.
--- NOTE | 2024-02-02 07:03 | DS ---
[facility] [address], [place] [address] Signed ADMISSION DATE: 01/27/2024 DISCHARGE DATE: 01/30/2024 FINAL DIAGNOSES: 1. 4 cm epigastric hernia. 2. 1.2 cm umbilical hernia. 3. Nodularity right breast. PROCEDURES: 1. Primary repair of epigastric and umbilical hernias with mesh. 2. CT scan of abdomen and pelvis. HISTORY OF PRESENT ILLNESS: Mercedes is a 48-year-old female with a body mass index of 39. She underwent a laparoscopic bilateral tubal ligation around 2013. She developed hernias and had to have that repaired with Vicryl mesh and had to have some of her terminal ileum excised because it was black and ischemic. She is returning now with an umbilical hernia for at least six months, which is incarcerated. She also has an epigastric hernia just above the umbilicus that contains transverse colon. It was only partially reducible. She went to the emergency room for evaluation. HOSPITAL COURSE: Mercedes was seen as above with a normal white count, but concerns regarding her two hernias. She also has some nodularity in the right breast. I had been asked to admit her as a general surgeon on-call. We hydrated her, corrected her electrolytes and took her to surgery on 01/28/2024. She had incarcerated fat in the umbilical hernia and she had some transverse colon that was quite healthy in the epigastric hernia. We used a 6 cm round Ventralex mesh to repair the umbilical hernia and an 8 cm round Ventralex mesh to repair the epigastric hernia. Both of the fascial defects were closed transversely. She did well both intraop and postop. [place] Therefore, we kept her here in the hospital and at this point, she is doing much better. She has had lots of flatus and several bowel movements and is tolerating diet. She prefers only Advil for pain, but did use a little Dilaudid tablets as well. At this point, she has reached discharge status. Her aunt who happens to live here in [place], [place] is with her in the room. DISCHARGE PLANS AND MEDICATIONS: Mercedes is going to be discharged home with a prescription for Dilaudid 2 mg tablets 1 to 2 tablets p.o. q. 6 hours p.r.n. for severe pain. We will dispense 15 tablets with no refills. Otherwise, she can use Tylenol, ibuprofen or Aleve for [id number] postoperative pain. She can purchase this [id number]. She is welcome to take her Electronically Signed By: TAWANDA BURT MD 02/02/24 0703 PATIENT NAME: MERCEDES HARDWICK DISCHARGE SUMMARY DATE OF : 73 REPORT #: [id number] PHYSICIAN: TAWANDA BURT MD PCP: LEANN GUALLPA PA-C REPORT IS CONFIDENTIAL AND NOT TO BE RELEASED WITHOUT AUTHORIZATION [facility] [address] [place] [id number] Signed antihistamines as usual. She will continue her regular diet. She can perform her activities of daily living including walking up and down stairs and showering and bathing as usual. She should not do any heavy pushing, pulling, or lifting over 20 pounds. She said she is anxious to get back to work. She is going to certainly do that under light duty status. We are going to have her return to the office in about 7 to 10 days to take her matt out. Of course, she is welcome to drive if she is off narcotics. She and her aunt have expressed understanding and agreed with the above plan. She did ask for an abdominal binder mainly to protect her incision from her small dogs. We will provide that with her before she leaves as well. Tawanda Burt MD ALB/MODL /[id number] cc: JOSE LUIS Adam MD Copies: LEANN GUALLPA PA-C, ANDREW L MD ~ Electronically Signed By: TAWANDA BURT MD 02/02/24 0703 PATIENT NAME: MERCEDES HARDWICK DISCHARGE SUMMARY DATE OF : 73 REPORT #: [id number] PHYSICIAN: TAWANDA BURT MD PCP: LEANN GUALLPA PA-C REPORT IS CONFIDENTIAL AND NOT TO BE RELEASED WITHOUT AUTHORIZATION
== END 2024-01-30 12:29 | disposition home or self-care (01) | DRG 354 ==
LOC: ED 13:44 → MS 17:23 → CCU 01-28 15:10 → MS 01-29 10:10
PROVIDERS: Emergency Medicine; ADMIT Colon & Rectal Surgery; ATTEND Colon & Rectal Surgery
PROC: 0WUF0JZ Supplement Abdominal Wall with Synthetic Substitute, Open Approach (ICD-10-PCS; principal; 2024-01-27)
PROC: 0WUF0JZ Supplement Abdominal Wall with Synthetic Substitute, Open Approach (ICD-10-PCS; 2024-01-27)
DX: K42.0 Umbilical hernia with obstruction, without gangrene (principal); Z68.42 Body mass index [BMI] 45.0-49.9, adult; K43.6 Other and unspecified ventral hernia with obstruction, without gangrene; N63.10 Unspecified lump in the right breast, unspecified quadrant; E66.01 Morbid (severe) obesity due to excess calories; G47.33 Obstructive sleep apnea (adult) (pediatric); F17.200 Nicotine dependence, unspecified, uncomplicated; J30.2 Other seasonal allergic rhinitis; Z88.0 Allergy status to penicillin; Z88.5 Allergy status to narcotic agent
CPT/HCPCS: 00750; 36415; 74177; 80048; 80053; 81003; 83690; 83735; 84100; 84703; 85025; 85060; 86850; 86900; 86901; 93005; 93010; A9270; C1781; C9113; J0330; J0696; J1100; J1170; J1650; J1885; J2250; J2310; J2405; J2704; J2765; J3010; J3475; J3490; J7121; Q9967